=== PATIENT | male | born 1935 | race Caucasian/White ===

== ENCOUNTER 2020-07-30 18:32 | Observation (INO) ==
--- NOTE | 2020-07-30 18:59 | Emergency Department Note ---
History of Present Illness General Chief complaint: Fall Stated complaint: FALL, OFF BALANCE, AMS Time Seen by Provider: 07/30/20 18:39 Source: patient and family History of Present Illness Provider complaint: Frequent falls Onset (ago): day(s) Location: head Severity: moderate Pain Consistency: + intermittent Maximum Pain Intensity: 0 Quality: + other (Loss of balance) Relieved By: + none Associated symptoms: no chest pain, no cough, no fever/chills, no headaches, no nausea/vomiting, no shortness of breath and no syncope This is an 85-year-old male with a history of Parkinson's disease presenting with frequent falls. He states for the past 3 days he has fallen 3 times. He fell a few hours ago when he got up from the table too quickly and lost his balance and fell on the linoleum. He does believe that he hit his head but did not have any loss of consciousness. He had a similar episode yesterday when he got up from the table too quickly and lost his balance again hitting his left forehead on the ground without LOC. He fell 3 days ago when he lost his balance and suffered a laceration of his buttock which was repaired here. His son states that he has not quite been himself for the past month. He has visual veliz llucinations where he sees people in the yard. He is slightly confused at times. He does state that his tetanus is up-to-date. He denies any headache, neck pain, chest pain, shortness of breath, palpitations, abdominal pain, back pain, hip pain, extremity pain, vomiting, diarrhea, black or bloody stools or urinary symptoms. Home Medications Medication Instructions Recorded Confirmed Type carbidopa-levodopa See Rx Instructions .ROUTE .COMPLEX 07/27/20 07/30/20 History Allergies Allergy/AdvReac Type Severity Reaction Status Date / Time No Known Allergies Allergy Verified 07/30/20 20:37 Past Med/Surg History Medical History Parkinsons disease Social History Smoking Status: Former smoker Tobacco Type: Cigarettes Preferred Language: Urdu Feels Safe at Home: Yes Review of Systems See HPI for pertinent positives & negatives. and A total of 10 systems reviewed and were otherwise negative Physical Exam Vital Signs Vital Signs - 24 hr 07/30/20 18:33 07/30/20 21:00 07/30/20 21:30 Temperature 37.1 C Temperature Source Oral Pulse Rate 103 H 90 95 H Respiratory Rate 18 24 21 Blood Pressure 163/92 H 164/92 H Blood Pressure Mean 115 116 Blood Pressure Position Sitting Pulse Oximetry 99 97 Oxygen Delivery Method Room Air Sepsis Recent Fever Within 48 Hours No Sepsis New/Unexplained Change in Mental Status N/A Sepsis Action Taken by Nursing No Action Required Constitutional: Vital signs reviewed. Eyes: Pupils are equal round reactive to light. Conjunctiva are noninjected. ENT: Pharynx is clear without erythema or exudate. Mucous membranes are moist. Bruising to the left superior orbit without bony tenderness or signs of entrapment. Neck supple without meningeal signs. No midline tenderness to the cervical spine. Respiratory: Clear to auscultation bilaterally. Breath sounds are equal bilaterally. Cardiovascular: Irregularly irregular rhythm. Normal rate. GI: Soft, nondistended and nontender. Bowel sounds are present. Musculoskeletal: No peripheral edema. No hip or lower extremity tenderness. Integumentary: No cyanosis. or jaundice. Superficial laceration to the middle forehead. 2 cm in size. Incision to right buttock intact with sutures in place. No drainage or erythema. Neurologic: The patient is awake and alert. Cranial nerves II-XII are intact. Motor is 5 out of 5 all extremities. Sensation is intact to light touch all extremities. Normal speech. No pronator drift. No limb ataxia. Resting tremor. Psychiatric: Normal affect. Not anxious appearing. Medical Decision Making Differential Diagnosis ICH, concussion, skull fracture, cervical fracture, contusion, metabolic derangement, UTI Medical Records Attestation: I reviewed the patient's medical records. I did perform a limited focused review of portions of the patient's old chart on the electronic medical record. The patient was seen here 3 days ago for a laceration to the right buttock sustained after a fall. He was sutured and discharged home. Home Medications Current Medication List: was personally reviewed by me Laboratory Data Attestation: I reviewed the patient's lab results. Result diagrams: 07/30/20 19:00 07/30/20 19:00 Lab Results 07/30/20 07/30/20 07/30/20 Range/Units 19:00 19:00 19:00 WBC 7.64 (4.8-10.8) K/uL RBC 4.43 L (4.7-6.1) M/uL Hgb 12.8 L (14.0-18.0) g/dL Hct 37.6 L (42-52) % MCV 84.9 (80-100) fL MCH 28.9 (25-34) pg MCHC 34.0 (32-36) g/dL RDW Std Deviation 43.3 (36.4-46.3) fL RDW Coeff of Shira 13.8 (11.5-14.5) % Plt Count 354 (130-400) K/uL MPV 9.4 (7.4-10.4) fL Immature Gran % (Auto) 0.1 % Neut % (Auto) 80.9 % Lymph % (Auto) 10.3 % Lea % (Auto) 7.6 % Eos % (Auto) 0.8 % Baso % (Auto) 0.3 % Neut # (Auto) 6.18 (1.4-6.5) K/uL Lymph # (Auto) 0.79 L (1.2-3.4) K/uL Lea # (Auto) 0.58 (0.11-0.59) K/uL Eos # (Auto) 0.06 (0-0.5) K/uL Baso # (Auto) 0.02 (0-0.2) K/uL Immature Gran # (Auto) 0.01 (0.00-0.02) K/uL PT 10.7 (9.0-12.0) Seconds INR 1.0 (0.9-1.1) APTT (21.0-31.0) Seconds PTT Ratio Sodium 136 (136-145) mmol/L Potassium 3.8 (3.5-5.1) mmol/L Chloride 103 (98-107) mmol/L Carbon Dioxide 27 (21-32) mmol/L Anion Gap 6.0 (3-11) BUN 15 (7-18) mg/dl Creatinine 1.49 H (0.6-1.4) mg/dl Est Cr Clr Drug Dosing Not Reportable Est GFR ( Amer) 49.2 Est GFR (Non-Af Amer) 42.5 BUN/Creatinine Ratio 9.9 L (10-20) Glucose 98 (70-99) mg/dl Calcium 9.0 (8.5-10.1) mg/dl Magnesium 2.1 (1.8-2.4) mg/dl Total Bilirubin 0.9 (0.2-1) mg/dl AST 14 L (15-37) U/L ALT 8 L (12-78) U/L Alkaline Phosphatase 90 (45-117) U/L Troponin I < 0.015 (0-0.045) ng/ml Total Protein 7.6 (6.4-8.2) gm/dl Albumin 3.9 (3.4-5.0) gm/dl Globulin 3.7 (2.5-4.0) gm/dl Albumin/Globulin Ratio 1.1 (0.9-2) TSH 3.120 (0.300-4.500) uIu/ml SARS-CoV-2 Ag (Rapid) (Negative) 07/30/20 07/30/20 Range/Units 19:00 21:00 WBC (4.8-10.8) K/uL RBC (4.7-6.1) M/uL Hgb (14.0-18.0) g/dL Hct (42-52) % MCV (80-100) fL MCH (25-34) pg MCHC (32-36) g/dL RDW Std Deviation (36.4-46.3) fL RDW Coeff of Shira (11.5-14.5) % Plt Count (130-400) K/uL MPV (7.4-10.4) fL Immature Gran % (Auto) % Neut % (Auto) % Lymph % (Auto) % Lea % (Auto) % Eos % (Auto) % Baso % (Auto) % Neut # (Auto) (1.4-6.5) K/uL Lymph # (Auto) (1.2-3.4) K/uL Lea # (Auto) (0.11-0.59) K/uL Eos # (Auto) (0-0.5) K/uL Baso # (Auto) (0-0.2) K/uL Immature Gran # (Auto) (0.00-0.02) K/uL PT (9.0-12.0) Seconds INR (0.9-1.1) APTT 25.1 (21.0-31.0) Seconds PTT Ratio 0.9 Sodium (136-145) mmol/L Potassium (3.5-5.1) mmol/L Chloride (98-107) mmol/L Carbon Dioxide (21-32) mmol/L Anion Gap (3-11) BUN (7-18) mg/dl Creatinine (0.6-1.4) mg/dl Est Cr Clr Drug Dosing Est GFR ( Amer) Est GFR (Non-Af Amer) BUN/Creatinine Ratio (10-20) Glucose (70-99) mg/dl Calcium (8.5-10.1) mg/dl Magnesium (1.8-2.4) mg/dl Total Bilirubin (0.2-1) mg/dl AST (15-37) U/L ALT (12-78) U/L Alkaline Phosphatase (45-117) U/L Troponin I (0-0.045) ng/ml Total Protein (6.4-8.2) gm/dl Albumin (3.4-5.0) gm/dl Globulin (2.5-4.0) gm/dl Albumin/Globulin Ratio (0.9-2) TSH (0.300-4.500) uIu/ml SARS-CoV-2 Ag (Rapid) Negative (Negative) Imaging Data Radiologist's Impression: XR chest 1V portable HISTORY: weakness COMPARISON: Chest 11/16/2012. FINDINGS: No pneumothorax. No pleural effusions. The heart is normal in size. No new focal lung consolidations to suggest pneumonia. No evidence for pulmonary edema. Calcifications overlying the right hepatic lobe. This remains unchanged. IMPRESSION: No significant change compared to the prior study. No acute process. ACT 112: Negative or not required by law. Electronically signed by: Derrek Viramontes M.D. 07/30/2020 7:[address]AST CT DOSE: 1411.29 mGy.cm HISTORY: fall eval for bleed TECHNIQUE: Multiaxial CT images of the head were performed without the use of intravenous contrast. Automated exposure control was utilized for this study. A dose lowering technique was utilized adhering to the principles of ALARA. Comparison: Brain MRI 11/12/2012. Findings: The paranasal sinuses and mastoid air cells are clear. The calvarium and skull base are intact. There is no mass, hematoma, midline shift, acute infarct. White matter hypodensity is nonspecific but suggestive of microvascular ischemic change. The ventricles and sulci demonstrate mild age-related involutional changes. Impression: No acute intracranial abnormality. Atrophy and microvascular ischemic changes. ACT 112: Negative or not required by law. Electronically signed by: Derrek Viramontes M.D. 07/30/2020 7:[address] DOSE: HISTORY: fall eval for fx TECHNIQUE: Multiaxial CT images of the cervical spine were performed and reformatted in the sagittal and coronal plane without the use of contrast. A dose lowering technique was utilized adhering to the principles of ALARA. COMPARISON: None. FINDINGS: No fractures. Prevertebral soft tissues and the C1-C2 interval are intact. No pneumothorax. Dextroscoliosis. 3 mm of anterolisthesis of C3 on C4. This is likely chronic. Mild reversal of the normal lordotic curvature. 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 The C5-C6 vertebral bodies are partially fused. IMPRESSION: No fractures within the cervical spine. ACT 112: Negative or not required by law. Electronically signed by: Derrek Viramontes M.D. 07/30/2020 7:48 PM ECG Data Attestation: I personally reviewed and interpreted this ECG as follows: Indication: + other (Frequent falls) Rate (beats per minute): 96 Rhythm: + atrial fibrillation ECG ST segments: no ST elevation and no T-wave inversions ECG Findings: no PVCs Head Trauma GCS Score: 15 MDM Narrative I did evaluate the patient as noted above. The patient is presenting with prabhu quent falls. He has fallen every day for the past 3 days. He does have a head injury and some minor abrasions and superficial laceration. He states his tetanus is up-to-date. IV access was established. I did place an order for continuous cardiac monitoring. The monitor showed atrial fibrillation with a rate of 100 bpm. I did order and personally review the patient's 12-lead EKG as described above. He has atrial fibrillation without acute ischemia. He has never had atrial fibrillation in the past. I did order and personally reviewed the images of the patient's chest x-ray as described above. Chest x-ray is unremarkable. I did order and review the patient's blood work as noted in the electronic medical record. He is mildly anemic. His white blood cell count is not elevated. Electrolytes are unremarkable. Troponin is negative. Creatinine is elevated at 1.5. TSH is within normal limits. I did order a CT of the abdomen and pelvis. I did review the images myself as well as the radiology report as described above. I did discuss the test results with the patient and his son. I did recommend hospitalization for further care and evaluation. I did discuss case with the hospitalist and case reviewer. Impression & Plan Atrial fibrillation, new onset, Parkinsons disease, Acute head injury, Frequent falls, Hallucination, visual, Elevated serum creatinine Discharge Plan Visit Data Chief Complaint: Fall Stated Complaint: FALL, OFF BALANCE, AMS ED Provider: Peewee Pack Discharge Problem: Atrial fibrillation, new onset, Parkinsons disease, Acute head injury, Frequent falls, Hallucination, visual, Elevated serum creatinine Patient Disposition: Being Evaluated by Hospitalist Discharge Instructions Interventions: ED Discharge Assessment Last Done: 07/30/20 22:19 Forms Stand Alone Forms: [facility] Prescriptions Prescriptions: No Action carbidopa-levodopa 25-100 mg tablet extended release See Rx Instructions .ROUTE .COMPLEX RF: 0 Referrals Referrals: PCP,NO [Primary Care Provider] - Discharge Problem: Acute head injury Qualifiers: Encounter type: initial encounter Qualified Code(s): S09.90XA - Unspecified injury of head, initial encounter
[2020-07-30 19:18] LABS: Basophils # (auto) 0.02 K/uL (0-0.2); Basophils % (auto) 0.3 %; Eosinophils # (auto) 0.06 K/uL (0-0.5); Eosinophils % (auto) 0.8 %; Hematocrit (blood only) 37.6 % (42-52); Hemoglobin 12.8 g/dL (14.0-18.0); Immature Granulocytes # (auto) 0.01 K/uL (0.00-0.02); Immature Granulocytes % (auto) 0.1 %; Lymphocytes # (auto) 0.79 K/uL (1.2-3.4); Lymphocytes % (auto) 10.3 %; Mean Corpuscular Hemoglobin 28.9 pg (25-34); Mean Corpuscular Volume 84.9 fL (80-100); Mean Platelet Volume 9.4 fL (7.4-10.4); Monocytes # (auto) 0.58 K/uL (0.11-0.59); Monocytes % (auto) 7.6 %; Neutrophils # (auto) 6.18 K/uL (1.4-6.5); Neutrophils % (auto) 80.9 %; Platelet Count 354 K/uL (130-400); RDW Coefficient of Variation 13.8 % (11.5-14.5); RDW Standard Deviation 43.3 fL (36.4-46.3); Red Blood Count 4.43 M/uL (4.7-6.1); White Blood Count 7.64 K/uL (4.8-10.8)
[2020-07-30 19:26] LABS: Prothrombin Time 10.7 Seconds (9.0-12.0)
--- NOTE | 2020-07-30 19:39 | XRay Report ---
XR chest 1V portable HISTORY: weakness COMPARISON: Chest 11/16/2012. FINDINGS: No pneumothorax. No pleural effusions. The heart is normal in size. No new focal lung conso lidations to suggest pneumonia. No evidence for pulmonary edema. Calcifications overlying the right h epatic lobe. This remains unchanged. IMPRESSION: No significant change compared to the prior study. No acute process. ACT 112: Negative or not required by law. Electronically signed by: Derrek Viramontes M.D. 07/30/2020 7:38 PM
--- NOTE | 2020-07-30 19:45 | CT Scan Report ---
HEAD CT NONCONTRAST CT DOSE: 1411.29 mGy.cm HISTORY: fall eval for bleed TECHNIQUE: Multiaxial CT images of the head were performed without the use of intravenous contrast. A utomated exposure control was utilized for this study. A dose lowering technique was utilized adheri ng to the principles of ALARA. Comparison: Brain MRI 11/12/2012. Findings: The paranasal sinuses and mastoid air cells are clear. The calvarium and skull base are int act. There is no mass, hematoma, midline shift, acute infarct. White matter hypodensity is nonspecifi c but suggestive of microvascular ischemic change. The ventricles and sulci demonstrate mild age-rela berenice involutional changes. Impression: No acute intracranial abnormality. Atrophy and microvascular ischemic changes. ACT 112: Negative or not required by law. Electronically signed by: Derrek Viramontes M.D. 07/30/2020 7:44 PM
--- NOTE | 2020-07-30 19:49 | CT Scan Report ---
CERVICAL SPINE CT CT DOSE: HISTORY: fall eval for fx TECHNIQUE: Multiaxial CT images of the cervical spine were performed and reformatted in the sagittal and coronal plane without the use of contrast. A dose lowering technique was utilized adhering to e principles of ALARA. COMPARISON: None. FINDINGS: No fractures. Prevertebral soft tissues and the C1-C2 interval are intact. No pneumothorax. Dextroscoliosis. 3 mm of anterolisthesis of C3 on C4. This is likely chronic. Mild reversal of the n ormal lordotic curvature. Moderate degenerative disc disease and facet osteoarthritis within the maryse rity of the cervical spine. The C5-C6 vertebral bodies are partially fused. IMPRESSION: No fractures within the cervical spine. ACT 112: Negative or not required by law. Electronically signed by: Derrek Viramontes M.D. 07/30/2020 7:48 PM
[2020-07-30 20:01] LABS: Alanine Aminotransferase 8 U/L (12-78); Albumin Globulin Ratio 1.1 (0.9-2); Albumin Level 3.9 gm/dl (3.4-5.0); Alkaline Phosphatase 90 U/L (45-117); Aspartate Aminotransferase 14 U/L (15-37); BUN Creatinine Ratio 9.9 (10-20); Bilirubin,Total 0.9 mg/dl (0.2-1); Blood Urea Nitrogen 15 mg/dl (7-18); Carbon Dioxide 27 mmol/L (21-32); Chloride 103 mmol/L (98-107); Est GFR (African American) 49.2; Est GFR (Non-African American) 42.5; Globulin 3.7 gm/dl (2.5-4.0); Glucose 98 mg/dl (70-99); Magnesium 2.1 mg/dl (1.8-2.4); Potassium 3.8 mmol/L (3.5-5.1); Sodium 136 mmol/L (136-145); Total Protein 7.6 gm/dl (6.4-8.2); Troponin I < 0.015 ng/ml (0-0.045)
[2020-07-30 20:53] LABS: Partial Thromboplastin Ratio 0.9; Partial Thromboplastin Time 25.1 Seconds (21.0-31.0)
--- NOTE | 2020-07-30 21:53 | History & Physical Report ---
Date of Service July 30, 2020 Assessment & Plan (1) Frequent falls: 85yo male with history of PD presenting with frequent falls, gait instability. Dominic has not been taking his PD medications for the last week because he reports they make him sleepy. Suspect falls and hallucinations are secondary to progression of PD, medication non-adherance -Admit to medical with telemetry -Check orthostatic VS x 1 -Resume Carbidopa-Levodopa -Neurology consultation appreciated re: medication adjustments, alternative therapies. Patient will need to followup with Neurology outpatient -Fall precautions -PT/OT evaluation - patient does not wish to be placed in rehab if it can be avoided Present on Admission?: Yes (2) Parkinsons disease: As above -Continue Carbidopa-Levodopa Present on Admission?: Yes (3) Hallucination, visual: Possibly secondary to PD progression vs medication-nonadherence -Resume carbidopa/levodopa as above -Continue to monitor Present on Admission?: Yes (4) Atrial fibrillation, new onset: EKG suggestive of atrial fibrillation. Patient had mention of arrhythmia during an ER visit in 2012, suggestive of AF. His first EKG seems more like SR with PACs, on exam his pulse is regular with ectopy. He is rate controlled. Would not initiate anticoagulation at this time given history of frequent falls with head trauma. -Telemetry monitoring F/E/N - LR at 100mL/hr x 1 liter, encourage PO intake, electrolytes WNL, regular diet as tolerated - easy to chew Ppx - SCDs Code - DNR/DNI Dispo - Admit to medical with telemetry History of Present Illness Chief Complaint: frequent falls Primary Care Provider: NO PCP Giacomo Cloud is a pleasant 85yo C male with history of Parkinson's disease presenting with frequent falls. Patient resides at home with his son and is fairly active and independent at baseline. He has had progressive decline in function and mobility over the last few weeks. He has been needing a walker to ambulate x 1 week. Patient has fallen multiple times over the last three days. He has had head trauma as well as buttock trauma requiring suturing on 07/27/20. Patient states that he "gets in a hurry" sometimes and that he loses his balance. Sometimes he thinks he may be tripping over things in his home. He denies chest pain/palpitations/LOC/seizures. He reports increase in visual hallucinations - states that sometimes he thinks he sees his son sitting in the chair in his room or the neighbor girl sitting at his kitchen table. Patient has longstanding diagnosis of Parkinson's disease. He does not follow routinely with Neurology - last seen in 2012. He is currently on Carbidopa- Levodopa but states that he hasn't been taking them over the last week or so because they make him too tired. No additional complaints at this time. No known Covid-19 exposure. Rapid testing today NEGATIVE Allergies Allergy/AdvReac Type Severity Reaction Status Date / Time No Known Allergies Allergy Verified 07/30/20 20:37 Home Medications Medication Instructions Recorded Confirmed Type carbidopa-levodopa See Rx Instructions .ROUTE .COMPLEX 07/27/20 07/30/20 History Past Med/Surg History Medical History (Updated 07/30/20 @ 20:27 by Peewee Pack MD) Parkinsons disease Surgical History (Updated 07/31/20 @ 00:38 by Haydee Guzman DO) No significant past surgical history Family History (Updated 07/31/20 @ 00:38 by Haydee Guzman DO) Other No significant family history Social History Smoking Status: Former smoker Tobacco Type: Cigarettes Do You Dip or Chew Tobacco: No; Hx Alcohol Use: No Hx Substance Use: No Preferred Language: Solomon Islander Communication Ability: Effective Route Sales Representative Required: No Beliefs That Will Affect Care: None Current Living Situation: Family Current Living Situation Comment: lives with son Evangelist Other Information That Helps Us Care for You: No Feels Safe at Home: Yes Safety Concerns: Feels Safe At This Time Assistive Devices: Glasses and Walker Review of Systems Review of Systems: All systems reviewed & are unremarkable except as noted in HPI & below Physical Exam Physical Exam: General: patient resting comfortably, NAD, non-toxic in appearance, AA&O x 3 Skin: scattered ecchymoses on forearms, abrasion on left elbow, several skin tears on arms, small cuts and bruises on face, no active bleeding or evidence of secondary infection HEENT: PERRL, EOMI, anicteric sclera, conjunctiva without injection, external ear normal to inspection and nontender, nares patent, moist mucus membranes, dentition intact, no oropharyngeal lesions, neck supple, trachea midline, no LAD, no thyromegaly, no JVD Heart: +S1/S2, regular with ectopy, no m/r/g Lungs: equal air entry bilaterally, no rales/rhonchi/wheezes Abd: +BS, soft, NT/ND, no masses/organomegaly/ascites Ext: warm, 2+ pulses in UE/LE bilaterally, no clubbing/cyanosis or edema Neuro: AA&O x 3, speech clear, resting tremor noted in hands and mouth, sensation to light touch intact, strength intact 5/5, patient right hand dominant, no cogwheel rigidity, poor balance with ambulation Results & Data Results & Data ([facility]) Vital Signs (Past 12 Hours) Vital Signs Temp Pulse Resp BP Pulse Ox 07/30/20 21:30 95 H 21 07/30/20 21:00 90 24 164/92 H 97 07/30/20 18:33 37.1 C 103 H 18 163/92 H 99 Laboratory Results Lab Results 07/30/20 07/30/20 07/30/20 Range/Units 19:00 19:00 19:00 WBC 7.64 (4.8-10.8) K/uL RBC 4.43 L (4.7-6.1) M/uL Hgb 12.8 L (14.0-18.0) g/dL Hct 37.6 L (42-52) % MCV 84.9 (80-100) fL MCH 28.9 (25-34) pg MCHC 34.0 (32-36) g/dL RDW Std Deviation 43.3 (36.4-46.3) fL RDW Coeff of Shira 13.8 (11.5-14.5) % Plt Count 354 (130-400) K/uL MPV 9.4 (7.4-10.4) fL Immature Gran % (Auto) 0.1 % Neut % (Auto) 80.9 % Lymph % (Auto) 10.3 % [place] % (Auto) 7.6 % Eos % (Auto) 0.8 % Baso % (Auto) 0.3 % Neut # (Auto) 6.18 (1.4-6.5) K/uL Lymph # (Auto) 0.79 L (1.2-3.4) K/uL [place] # (Auto) 0.58 (0.11-0.59) K/uL Eos # (Auto) 0.06 (0-0.5) K/uL Baso # (Auto) 0.02 (0-0.2) K/uL Immature Gran # (Auto) 0.01 (0.00-0.02) K/uL PT 10.7 (9.0-12.0) Seconds INR 1.0 (0.9-1.1) APTT (21.0-31.0) Seconds PTT Ratio Sodium 136 (136-145) mmol/L Potassium 3.8 (3.5-5.1) mmol/L Chloride 103 (98-107) mmol/L Carbon Dioxide 27 (21-32) mmol/L Anion Gap 6.0 (3-11) BUN 15 (7-18) mg/dl Creatinine 1.49 H (0.6-1.4) mg/dl Est Cr Clr Drug Dosing Not Reportable Est GFR ( Amer) 49.2 Est GFR (Non-Af Amer) 42.5 BUN/Creatinine Ratio 9.9 L (10-20) Glucose 98 (70-99) mg/dl Calcium 9.0 (8.5-10.1) mg/dl Magnesium 2.1 (1.8-2.4) mg/dl Total Bilirubin 0.9 (0.2-1) mg/dl AST 14 L (15-37) U/L ALT 8 L (12-78) U/L Alkaline Phosphatase 90 (45-117) U/L Troponin I < 0.015 (0-0.045) ng/ml Total Protein 7.6 (6.4-8.2) gm/dl Albumin 3.9 (3.4-5.0) gm/dl Globulin 3.7 (2.5-4.0) gm/dl Albumin/Globulin Ratio 1.1 (0.9-2) TSH 3.120 (0.300-4.500) uIu/ml SARS-CoV-2 Ag (Rapid) (Negative) 07/30/20 07/30/20 Range/Units 19:00 21:00 WBC (4.8-10.8) K/uL RBC (4.7-6.1) M/uL Hgb (14.0-18.0) g/dL Hct (42-52) % MCV (80-100) fL MCH (25-34) pg MCHC (32-36) g/dL RDW Std Deviation (36.4-46.3) fL RDW Coeff of Shira (11.5-14.5) % Plt Count (130-400) K/uL MPV (7.4-10.4) fL Immature Gran % (Auto) % Neut % (Auto) % Lymph % (Auto) % [place] % (Auto) % Eos % (Auto) % Baso % (Auto) % Neut # (Auto) (1.4-6.5) K/uL Lymph # (Auto) (1.2-3.4) K/uL [place] # (Auto) (0.11-0.59) K/uL Eos # (Auto) (0-0.5) K/uL Baso # (Auto) (0-0.2) K/uL Immature Gran # (Auto) (0.00-0.02) K/uL PT (9.0-12.0) Seconds INR (0.9-1.1) APTT 25.1 (21.0-31.0) Seconds PTT Ratio 0.9 Sodium (136-145) mmol/L Potassium (3.5-5.1) mmol/L Chloride (98-107) mmol/L Carbon Dioxide (21-32) mmol/L Anion Gap (3-11) BUN (7-18) mg/dl Creatinine (0.6-1.4) mg/dl Est Cr Clr Drug Dosing Est GFR ( Amer) Est GFR (Non-Af Amer) BUN/Creatinine Ratio (10-20) Glucose (70-99) mg/dl Calcium (8.5-10.1) mg/dl Magnesium (1.8-2.4) mg/dl Total Bilirubin (0.2-1) mg/dl AST (15-37) U/L ALT (12-78) U/L Alkaline Phosphatase (45-117) U/L Troponin I (0-0.045) ng/ml Total Protein (6.4-8.2) gm/dl Albumin (3.4-5.0) gm/dl Globulin (2.5-4.0) gm/dl Albumin/Globulin Ratio (0.9-2) TSH (0.300-4.500) uIu/ml SARS-CoV-2 Ag (Rapid) Negative (Negative) Diagnostic Findings XR chest 1V portable HISTORY: weakness COMPARISON: Chest 11/16/2012. FINDINGS: No pneumothorax. No pleural effusions. The heart is normal in size. No new focal lung consolidations to suggest pneumonia. No evidence for pulmonary edema. Calcifications overlying the right hepatic lobe. This remains unchanged. IMPRESSION: No significant change compared to the prior study. No acute process. ACT 112: Negative or not required by law. Electronically signed by: Derrek Viramontes M.D. 07/30/2020 7:38 PM Dictated: 07/30/201936Transcribed: 07/30/[address] NONCONTRAST CT DOSE: 1411.29 mGy.cm HISTORY: fall eval for bleed TECHNIQUE: Multiaxial CT images of the head were performed without the use of intravenous contrast. Automated exposure control was utilized for this study. A dose lowering technique was utilized adhering to the principles of ALARA. Comparison: Brain MRI 11/12/2012. Findings: The paranasal sinuses and mastoid air cells are clear. The calvarium and skull base are intact. There is no mass, hematoma, midline shift, acute infarct. White matter hypodensity is nonspecific but suggestive of microvascular ischemic change. The ventricles and sulci demonstrate mild age-related involutional changes. Impression: No acute intracranial abnormality. Atrophy and microvascular ischemic changes. ACT 112: Negative or not required by law. [facility], [id number] CT Scan Report Patient: GIACOMO CLOUDAdmit Date: 07/30/20MR#: [id number]: [id number] ID:[id number]: Date: 1935[facility] Zip: [place], [place] [address]Jhj: 85Location: EDSex: MRoom/Bed:Att Phy:Diagnosis: FALL, OFF BALANCE, AMSPri Phy: PCP,NOService Date: 07/30/20Fam Phy:Interpreting Phy: Derrek Viramontes MDAdmit Phy: Ordering Phy: Peewee Pack MD cc: ~ CERVICAL SPINE CT CT DOSE: HISTORY: fall eval for fx TECHNIQUE: Multiaxial CT images of the cervical spine were performed and reformatted in the sagittal and coronal plane without the use of contrast. A dose lowering technique was utilized adhering to the principles of ALARA. COMPARISON: None. FINDINGS: No fractures. Prevertebral soft tissues and the C1-C2 interval are intact. No pneumothorax. Dextroscoliosis. 3 mm of anterolisthesis of C3 on C4. This is likely chronic. Mild reversal of the normal lordotic curvature. 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 The C5-C6 vertebral bodies are partially fused. IMPRESSION: No fractures within the cervical spine. ACT 112: Negative or not required by law. Electronically signed by: Derrek Viramontes M.D. 07/30/2020 7:48 PM Dictated: 07/30/201943Transcribed: 07/30/201943 ECG Additional Comments: atrial fibrillation, 96 bpm, no acute ischemic changes PG Care Time/CCT Total # of Minutes Spent Total Time Spent with Patient: Total time spent is greater than 50% in coordination of care (as documented) at patient's floor/unit and/or counseling patient: Coding Level of Care Code 36403 Initial Inpt Care Lvl 3 Diagnoses Frequent falls R29.6 Parkinsons disease G20 Hallucination, visual R44.1 Atrial fibrillation, new onset I48.91
[2020-07-30] MEDS ORDERED: LACTATED RINGER'S 1,000 ML IV SCH (22:56)
[2020-07-30] MEDS ORDERED: ACETAMINOPHEN 325 MG TAB PO PRN (22:56)
[2020-07-31 05:26] LABS: Appearance Urine Cloudy (Clear); Bacteria Urine Automated Negative (Negative); Bilirubin Urine Negative (Negative); Blood Urine 3+ (Negative); Color Urine Dark Yellow; Epithelial Cell Urine Auto >30 /lpf (0-5); Glucose Urine UA Negative (Negative); Ketones Urine Negative (Negative); Leukocyte Esterase Urine 1+ (Negative); Nitrite Urine Negative (Negative); Protein Urine 2+ (Negative); RBC Urine Automated >30 /hpf (0-4); Specific Gravity Urine 1.022 (1.000-1.030); Urobilinogen Urine Positive (Negative); WBC Urine Automated >30 /hpf (0-5); pH Urine 6.5 (4.5-7.5)
[2020-07-31] MEDS: CARBIDOPA/LEVODOPA 25/100MG EXT REL TAB PO SCH ×4 (05:31→17:44)
[2020-07-31 05:51] LABS: Renal Epithelial Cells Urine 0-5 /lpf (0-5)
[2020-07-31 07:28] LABS: Basophils # (auto) 0.02 K/uL (0-0.2); Basophils % (auto) 0.4 %; Eosinophils # (auto) 0.09 K/uL (0-0.5); Eosinophils % (auto) 1.7 %; Hematocrit (blood only) 33.9 % (42-52); Hemoglobin 11.4 g/dL (14.0-18.0); Lymphocytes # (auto) 0.87 K/uL (1.2-3.4); Lymphocytes % (auto) 16.6 %; Mean Corpuscular Hemoglobin 28.8 pg (25-34); Mean Corpuscular Hgb Conc 33.6 g/dL (32-36); Mean Corpuscular Volume 85.6 fL (80-100); Mean Platelet Volume 9.3 fL (7.4-10.4); Monocytes # (auto) 0.46 K/uL (0.11-0.59); Monocytes % (auto) 8.8 %; Neutrophils # (auto) 3.79 K/uL (1.4-6.5); Neutrophils % (auto) 72.5 %; Platelet Count 303 K/uL (130-400); RDW Coefficient of Variation 13.8 % (11.5-14.5); RDW Standard Deviation 43.4 fL (36.4-46.3); Red Blood Count 3.96 M/uL (4.7-6.1); White Blood Count 5.23 K/uL (4.8-10.8)
--- NOTE | 2020-07-31 07:36 | Hospitalist Progress Note ---
Date of Service July 31, 2020 Assessment & Plan (1) Parkinsons disease: Patient is an 85 year old male with PMHx Parkinson's Disease that presented initially for concerns of multiple falls, worsening weakness x1 month, visual hallucinations x1 month. Frequent Falls and Visual Hallucinations, secondary to Parkinson's Disease -Patient had increased falls x1 week since stopping home Sinemet -Orthostatics completed, within normal limits -Neurology consulted for medication adjustment -Reduce carbidopa-levodopa 25/100mg ER to 1 tab QID (6a/10a/2p/6p) to avoid side effect -Can consider pimavanserin 34mg daily outpatient for hallucinations -PT/OT ordered -PT/OT/Neuro recommending patient be referred for PD program at [facility] for inpatient rehab services Atrial Fibrillation, new onset -Mention of arrhythmia on ED visit in 2012 suggestive of atrial fibrillation -Rate well controlled without antiarrhythmics at this time -Echo with EF 65-70%, no valvular pathology, no regional wall abnormalities -Patient [id number] 3 with 3.2% stroke risk yearly -While not an entire contraindication, patients significant fall history and risk should be weighed in regards to anticoagulation -Would consider DOAC (would prefer Eliquis, insurance coverage allowing) if starting anticoagulation, will hold at this time until further discussion with patient and sons Dispo: M/S Telemetry FEN: Regular ETC diet DVT: SCDs, high fall risk Code: DNR/DNI (2) Frequent falls: (3) Atrial fibrillation, new onset: (4) Hallucination, visual: Admission and Anticipated Discharge Date Admission Date: July 30, 2020 Supervising Physician Co-Signing Physician Notes Resident Physician Supervision Note: I independently interviewed and examined the patient and verified the richmond history and physical, reviewed labs and image studies, discussed the case with the resident Dr. Cavanaugh and agree with the findings and care plan. Subjective Patient evaluated at the bedside this AM with the hospitalist team. Patient laying comfortably in bed in no acute distress. Noted that he had been feeling weaker for the past month, but acutely worsened the past week. Hope that his medication was making him weaker and dizzier as as a result stopped taking his Sinemet 1 week ago. He also notes he had been having visual hallucinations which upon discussion with his sons has been ongoing for the past 1-2 weeks as well. He notes that he adamantly would prefer to go back home rather than rehab. Discussed with his son who is CHON who felt that his father would likely benefit more from rehab at this time and that he would discuss it with his father more. Review of Systems Constitutional: + weakness; no fever and no chills Eyes: no eye pain and no photophobia Ear, Nose, Mouth, Throat: + dizziness Respiratory: no cough, no dyspnea and no pain on inspiration Cardiovascular: no chest pain, no dyspnea on exertion and no palpitations Gastrointestinal: no abdominal pain, no nausea, no vomiting, no constipation and no diarrhea/loose stools Genitourinary: no dysuria Musculoskeletal: + stiffness and + muscle weakness Neurologic: + gait abnormality, + unsteadiness, + generalized weakness, + tremor(s) and + confusion; no headache(s) Physical Exam Constitutional: + thin and cooperative; no acute distress and not ill ap pearing Eyes: PERRL, conjunctivae normal, anicteric sclerae ENMT: external ear and nose normal, oropharynx normal Neck: normal visual inspection Respiratory: normal respiratory effort, lungs clear to auscultation Cardiovascular: Rate/Rhythm: + irregularly irregular Heart Sounds: normal S1 and normal S2; no murmur Extremities: normal capillary refill Gastrointestinal (Abdomen): normal bowel sounds, soft, nontender, no hepatosplenomegaly Musculoskeletal: no cyanosis or clubbing, extremities motor strength 5/5 Head/Neck/Chest: normocephalic Skin: no rashes, warm and dry Neurologic: PERRL, EOMI, accommodation nl, no face palsy, no dysarthria awake; not confused and not obtunded Motor/Sensory: + tremor; no pronator drift Gait deferred Results & Data Results & Data ([facility]) Vital Signs (Past 12 Hours) Vital Signs Temp Pulse Pulse Resp BP BP BP 07/31/20 07:32 85 07/31/20 02:45 36.4 C L 88 17 152/69 H 07/31/20 01:06 95 H 07/31/20 00:04 70 158/89 H 07/30/20 22:57 37.0 C 72 12 167/98 H 07/30/20 21:30 95 H 21 07/30/20 21:00 90 24 164/92 H Pulse Ox 07/31/20 07:32 07/31/20 02:45 94 07/31/20 01:06 07/31/20 00:04 07/30/20 22:57 95 07/30/20 21:30 07/30/20 21:00 97 Resident Activity Tracking Resident Involvement: Resident Care Provided Care Provided: Adult Hospital Medicine
[2020-07-31 08:07] LABS: BUN Creatinine Ratio 10.8 (10-20); Calcium 8.7 mg/dl (8.5-10.1); Creatinine Clr Calc Pharmacy 40.4 ml/min; Est GFR (African American) 63.3; Est GFR (Non-African American) 54.6
--- NOTE | 2020-07-31 09:56 | Electrocardiogram Report ---
Test Reason : Blood Pressure : / mmHG Vent. Rate : 096 BPM Atrial Rate : 166 BPM P-R Int : 000 ms QRS Dur : 084 ms QT Int : 302 ms P-R-T Axes : 000 -09 008 degrees QTc Int : 381 ms Poor data quality, interpretation may be adversely affected Atrial fibrillation Abnormal ECG When compared with ECG of 16-NOV-2012 21:33, Atrial fibrillation has replaced Sinus rhythm Confirmed by Osiel Buck ([id number]) on 07/31/2020 9:55:30 AM Referred By: REFERRED SELF Confirmed By:Osiel Buck
--- NOTE | 2020-07-31 09:58 | Electrocardiogram Report ---
Test Reason : Blood Pressure : / mmHG Vent. Rate : 097 BPM Atrial Rate : 097 BPM P-R Int : 000 ms QRS Dur : 080 ms QT Int : 346 ms P-R-T Axes : 000 -17 -16 degrees QTc Int : 439 ms Poor data quality, interpretation may be adversely affected Atrial fibrillation Nonspecific ST and T wave abnormality Abnormal ECG When compared with ECG of 30-JUL-2020 19:13, (unconfirmed) QT has lengthened Confirmed by Osiel Buck ([id number]) on 07/31/2020 9:58:05 AM Referred By: REFERRED SELF Confirmed By:Osiel Buck
--- NOTE | 2020-07-31 12:06 | Neurology Consultation ---
Date of Consultation July 31, 2020 Assessment & Plan (1) Atrial fibrillation, new onset: (2) Hallucination, visual: (3) Parkinsons disease: Amol Obrien is an 85 yo man w/ PMH of Parkinson's disease and prior tobacco abuse who p/t [facility] after recurrent falls, AMS and visual hallucinations for the last one month. Neurology consulted for medication management. # Parkinson's disease: - decrease carbidopa-levodopa 25/100mg ER to 1 tab qid (6a/10a/2p/6p) - can consider starting pimavanserin 34mg daily for visual hallucinations (this will need to be done as an outpatient) - recommend discharge to the PD program at [facility] for inpatient rehab services tailored to PD. If he will not agree to this, an alternative option would be home with home health PT/OT - conservative measures for orthostatic hypotension including abdominal binder, compression stockings, increasing water intake to 80 oz daily and mild salt intake with each meal - KHALIF for prior neurology records - follow up in neurology clinic in 2-3 months # Afib: - recommend starting AC given CHADSVasc score of 3. Would obtain TTE prior to determine if valvular vs non-valvular Afib Thank you for this interesting consult. Plan of care discussed with primary team. Please call or text with questions. (4) Elevated serum creatinine: History of Present Illness Attending Physician: Tamanna Florez MD History of Present Illness Amol Obrien is an 85 yo man w/ PMH of Parkinson's disease and prior tobacco abuse who p/t [facility] after recurrent falls, AMS and visual hallucinations for the last one month. Neurology consulted for medication management. In the ED, he was afebrile, BP 163/92, HR 103, RR 18, satting 99% on room air. Labs notable for WBC 7.64, hemoglobin 12.9, platelets 354, sodium 136, potassium 3.8, creatinine 1.49, glucose 98, INR 1.0, calcium/magnesium within normal, LFTs within normal, troponin negative, TSH within normal, Covid negative. UA positive for 2+ protein, 3+ blood, positive leukoesterase but no clear infection. Urine culture pending. Imaging independently reviewed. CT head shows mild to moderate generalized atrophy with frontotemporal predominance and associated ex vacuo dilation, +mild SVID. CT C-spine shows moderate multilevel degenerative disc disease with dextroscoliosis and 3 mm of anterolisthesis at C3/C4. Chest x-ray shows no pneumonia. EKG shows A. fib. On evaluation, he was unable to provide further history other than he has Parkinson's disease and has been falling recently. He reported that he wanted to go home and was not interested in rehab. Reports that he has not seen a neurologist in several years Current PD meds: carbidopa-levodopa 25/100mg 1.5 tabs at 6am/10a/2p and 1 tab at 6pm Previously tried PD meds: unknown but must have tried sinemet IR in the past to get approved for the ER form Allergies Allergy/AdvReac Type Severity Reaction Status Date / Time No Known Allergies Allergy Verified 07/30/20 20:37 Home Medications Medication Instructions Recorded Confirmed Type carbidopa-levodopa See Rx Instructions .ROUTE .COMPLEX 07/27/20 07/30/20 History Patient History Medical History Parkinsons disease Surgical History No significant past surgical history Family History Other No significant family history Social History Smoking Status: Former smoker Tobacco Type: Cigarettes Do You Dip or Chew Tobacco: No; Hx Alcohol Use: No Hx Substance Use: No Preferred Language: Vietnamese Communication Ability: Effective Instructor Hairspring Required: No Beliefs That Will Affect Care: None Current Living Situation: Family Current Living Situation Comment: lives with son Evangelist Other Information That Helps Us Care for You: No Feels Safe at Home: Yes Safety Concerns: Feels Safe At This Time Assistive Devices: Walker Review of Systems Review of Systems: 14 point review of systems completed and negative except as in HPI. Exam (Neuro) Physical Exam: General Exam: GEN: NAD, sitting in chair. HEENT: No conjunctival injection, no rhinorrhea. CV: RRR, no peripheral edema PULM: Nonlabored respirations on room air. Neuro Exam: MS: Awake and Alert. Oriented to person, place, and month/year but not date. Speech fluent and appropriate, +mild dysarthria, no paraphasic errors. Language intact including naming, comprehension, repetition. Cognition and memory mildly impaired. Slightly inattentive. No neglect. CN: Visual yoon full. No extinction to double simultaneous stimuli. Unable to visualize fundi on fundoscopic exam. PERRLA OU. EOMI without nystagmus. Facial sensation intact to LT. Slight left facial droop. Hearing intact to conversation. Uvula midline with symmetric palatal elevation. Shoulder shrug normal. Tongue midline. MOTOR: Normal bulk and tone, no clear cogwheeling. No pronator drift. BUE strength 5-/5 at deltoids, biceps, triceps, wrist flexors and extensors, and hand grasp bilaterally. BLE strength 4+ to 5-/5 at iliopsoas, hamstrings, quadriceps, tibialis anterior, and gastrocnemius bilaterally. REFLEXES: 1+ at biceps, triceps, brachioradialis, absent patella and absent Achilles bilaterally. Flexor plantar responses bilaterally. SENSORY: Intact to LT/vibration without extinction to double simultaneous stimuli. COORDINATION: No dysmetria or ataxia on [id number] bilaterally. Normal finger taps bilaterally. GAIT: deferred given fall risk/physical status Results & Data ([facility]) Vital Signs (Past 12 Hours) Vital Signs Temp Pulse Pulse Resp BP BP Pulse Ox 07/31/20 11:29 37.1 C 90 18 115/67 96 07/31/20 07:40 37.0 C 83 16 149/78 H 97 07/31/20 07:32 85 07/31/20 02:45 36.4 C L 88 17 152/69 H 94 07/31/20 01:06 95 H 07/31/20 00:04 70 158/89 H PG Care Time/CCT Total # of Minutes Spent Total Time Spent with Patient: Total time spent is greater than 50% in coordination of care (as documented) at patient's floor/unit and/or counseling patient: Coding Level of Care Code 02236 Initial Inpt Care Lvl 3 Diagnoses Atrial fibrillation, new onset I48.91 Hallucination, visual R44.1 Parkinsons disease G20 Elevated serum creatinine R79.89
--- NOTE | 2020-07-31 15:37 | XCELERA ---
[id number]
[2020-07-31] MEDS ORDERED: CARBIDOPA/LEVODOPA 25/100MG EXT REL TAB PO SCH (18:00)
[2020-08-01] MEDS: CARBIDOPA/LEVODOPA 25/100MG EXT REL TAB PO SCH ×4 (05:42→17:28)
[2020-08-01 07:52] LABS: Basophils # (auto) 0.01 K/uL (0-0.2); Basophils % (auto) 0.2 %; Eosinophils # (auto) 0.11 K/uL (0-0.5); Hematocrit (blood only) 36.3 % (42-52); Hemoglobin 12.2 g/dL (14.0-18.0); Immature Granulocytes # (auto) 0.01 K/uL (0.00-0.02); Immature Granulocytes % (auto) 0.2 %; Lymphocytes # (auto) 0.82 K/uL (1.2-3.4); Lymphocytes % (auto) 14.7 %; Mean Corpuscular Hemoglobin 28.4 pg (25-34); Mean Corpuscular Hgb Conc 33.6 g/dL (32-36); Mean Corpuscular Volume 84.4 fL (80-100); Mean Platelet Volume 9.1 fL (7.4-10.4); Monocytes # (auto) 0.38 K/uL (0.11-0.59); Monocytes % (auto) 6.8 %; Neutrophils # (auto) 4.25 K/uL (1.4-6.5); Neutrophils % (auto) 76.1 %; Platelet Count 307 K/uL (130-400); RDW Coefficient of Variation 13.5 % (11.5-14.5); RDW Standard Deviation 41.2 fL (36.4-46.3); White Blood Count 5.58 K/uL (4.8-10.8)
[2020-08-01 08:31] LABS: BUN Creatinine Ratio 12.8 (10-20); Calcium 8.9 mg/dl (8.5-10.1); Creatinine Clr Calc Pharmacy 40.6 ml/min; Est GFR (African American) 65.3; Est GFR (Non-African American) 56.3; Potassium 3.9 mmol/L (3.5-5.1)
--- NOTE | 2020-08-01 09:52 | Hospitalist Progress Note ---
Date of Service August 01, 2020 Assessment & Plan (1) Parkinsons disease: Patient is an 85 year old male with PMHx Parkinson's Disease that presented initially for progressive weakness leading to multiple falls over the past month, found to have new atrial fibrillation without rapid ventricular response. Frequent Falls and Visual Hallucinations, secondary to Parkinson's Disease -Patient has had progressive weakness with increased falls x1 week since stopping home Sinemet -Orthostatics completed, within normal limits -Head CT negative for acute bleed; CT cervical spine negative for acute pathology -Neurology consulted for medication adjustment -Reduce carbidopa-levodopa 25/100mg ER to 1 tab QID (6a/10a/2p/6p) to avoid side effect -Can consider pimavanserin 34mg daily (will need to be started as an outpatient) for hallucinations -PT/OT/Neuro recommending patient be referred for PD program at [facility] for inpatient rehab services - Son "Kunal" is POA and supportive of placement an [facility] for rehab upon hospital discharge - r/o lymes as per family request. Atrial Fibrillation, new onset -EKG showing A-fib on admission -Rate well controlled without antiarrhythmics at this time -Echo with EF 65-70%, no valvular pathology, no regional wall abnormalities -Patient CHADS2-VASC2 score of 2, placing him at "moderate-high risk" for thromboembolic event -HAS-BLED score of 1, low risk of bleeding -patient is a fall risk, secondary to parkinson's disease -discussed initiation of anticoagulation therapy with son Kunal (POA), including risks and benefits. Kunal would like to hold off on anticoagulation at this time and revisit the idea after Mr. Obrien completes physical therapy and his stability is reassessed Delirium - sec to hospital stay. possibly with underlying dementia. able to say the year right. - patient recently lost his son - follow. Dispo: M/S Telemetry; awaiting placement at [facility] rehab. CM following. FEN: Regular ETC diet DVT: Lovenox, 40mg SQ, daily, SCDs Code: DNR/DNI (2) Frequent falls: (3) Atrial fibrillation, new onset: (4) Hallucination, visual: Admission and Anticipated Discharge Date Admission Date: July 30, 2020 Supervising Physician Co-Signing Physician Notes Resident Physician Supervision Note: I independently interviewed and examined the patient and verified the richmond history and physical, reviewed labs and image studies, discussed the case with the resident Dr. Leiva and agree with the findings and care plan. Subjective Patient today states he is doing alright. He asks for an empty trash bag; when I asked why he needed it, he replied, "to throw this glass ball away that I broke." He motioned down to his hands, with which he was holding his blanket. I spoke with his son Kunal (his POA) over the phone today - Kunal would like to pursue rehab placement at [facility]. I counseled Kunal about the possibility of starting a blood thinner for his A-fib - I explained the increased risk of stroke with A-fib, and the increased risk of bleeding from being on a blood thinner. Given Mr. Obrien's recent falls, Kunal would like to put the decision of anticoagulation off until after his father completes rehab and his stability can be re-assessed. Review of Systems Musculoskeletal: + stiffness and + muscle weakness Neurologic: + gait abnormality, + unsteadiness, + generalized weakness, + tremor(s) and + confusion; no headache(s) Physical Exam Constitutional: well developed and well nourished; no acute distress Eyes: PERRL, conjunctivae normal, anicteric sclerae ENMT: external ear and nose normal, oropharynx normal Neck: normal visual inspection and trachea midline Respiratory: normal respiratory effort, lungs clear to auscultation Cardiovascular: Rate/Rhythm: + tachycardic and + irregularly irregular Heart Sounds: normal S1 and normal S2 Gastrointestinal (Abdomen): normal bowel sounds, soft, nontender, no hepatosplenomegaly Skin: no rashes, warm and dry Neurologic: moves all extremities Motor/Sensory: + tremor (tongue, bilateral hands (R worse than left) ) mild dysarthria Psychiatric: Orientation: alert, oriented to person and oriented to time; + not oriented to place Results & Data Results & Data ([facility]) Vital Signs (Past 12 Hours) Vital Signs Temp Pulse Resp BP BP Pulse Ox 08/01/20 07:34 36.4 C L 101 H 20 135/89 95 08/01/20 02:30 36.5 C 111 H 20 157/75 H 96 07/31/20 23:24 36.5 C 85 18 150/88 H 98 Resident Activity Tracking Resident Involvement: Resident Care Provided Care Provided: Adult [facility] Medicine
[2020-08-01] MEDS: METOPROLOL TARTRATE 1 MG/ML VIAL IV PRN ×2 (10:58→18:21)
[2020-08-01] MEDS: ENOXAPARIN INJ 40 MG/0.4 ML SYR SQ SCH (10:58)
[2020-08-01 16:51] LABS: Lyme Ab IgG w/WB Rflx Positive (Negative); Lyme Ab IgM w/WB Rflx Equivocal (Negative)
[2020-08-02] MEDS: CARBIDOPA/LEVODOPA 25/100MG EXT REL TAB PO SCH ×4 (06:37→17:23)
--- NOTE | 2020-08-02 07:02 | Hospitalist Progress Note ---
Date of Service August 02, 2020 Assessment & Plan (1) Parkinsons disease: Patient is an 85 year old male with PMHx Parkinson's Disease that presented initially for progressive weakness leading to multiple falls over the past month, found to have new atrial fibrillation without rapid ventricular response. Frequent Falls and Visual Hallucinations, secondary to Parkinson's Disease -Patient has had progressive weakness with increased falls x1 week since stopping home Sinemet. Given new history by son Kunal today, it is possible Mr. Obrien has been off his Sinemet for a greater period of time than 1 week (no provider to prescribe refills). -Orthostatics completed, within normal limits -Head CT negative for acute bleed; CT cervical spine negative for acute pathology -Neurology consulted for medication adjustment -Reduce carbidopa-levodopa 25/100mg ER to 1 tab QID (6a/10a/2p/6p) to avoid side effect -Can consider pimavanserin 34mg daily (will need to be started as an outpatient) for hallucinations -PT/OT/Neuro recommending patient be referred for PD program at [facility] for inpatient rehab services - Son "Kunal" is POA and supportive of placement an [facility] for rehab upon hospital discharge - Excessive somnolence this am - No focal finding on exam. CT head done- negative. Atrial Fibrillation, new onset -EKG showing A-fib on admission without rapid ventricular response; -rate in the 80s today, although patient required two doses of IV Lopressor for rates in 120s yesterday -we will initiate low dose of beta jimy today for maintenance rate control agent, Atenolol 25mg, qam. -Echo with EF 65-70%, no valvular pathology, no regional wall abnormalities -Patient CHADS2-VASC score of 2, placing him at "moderate-high risk" for thromboembolic event -HAS-BLED score of 1, low risk of bleeding -patient is a fall risk, secondary to parkinson's disease -discussed initiation of anticoagulation therapy with haydee Syed (POA), including risks and benefits. Kunal would like to hold off on anticoagulation at this time and revisit the idea after Mr. Obrien completes physical therapy and his stability is reassessed Delirium - sec to hospital stay. possibly with underlying dementia. - patient recently had a son who , likely a major stressor - continue delirium precautions Lyme Disease - patient's son requested he be tested for Lyme. Per son, history of lyme disease in 2013 - IgG positive, IgM equivocal. Western blot pending - antibody testing suggestive of prior lyme disease infection vs. acute infection - will initiate treatment with doxycycline 100mg, BID. Discontinue doxycycline of Western blot returns negative for IgM Dispo: M/S Telemetry; awaiting placement at [facility] rehab. CM following. FEN: Regular ETC diet DVT: Lovenox, 40mg SQ, daily, SCDs Code: DNR/DNI (2) Frequent falls: (3) Atrial fibrillation, new onset: (4) Hallucination, visual: Admission and Anticipated Discharge Date Admission Date: July 30, 2020 Supervising Physician Co-Signing Physician Notes Resident Physician Supervision Note: I independently interviewed and examined the patient and verified the richmond history and physical, reviewed labs and image studies, discussed the case with the resident Dr. Leiva and agree with the findings and care plan. Subjective Spoke with son Kunal (POA) again today - he said his father previously followed with a [facility] PCP in [facility]. However in 2015 - Mr. Obrien abruptly stopped seeing both his PCP and his neurologist. There does not sound seem to be any apparent reason for him being lost to follow up - he simply decided he did not want to attend doctors visists any longer. Kunal also reports Mr. Obrien had a history of lyme disease in 2012. Mr. Obrien today said he was feeling fine. He is slummed over in bed and drowsy Review of Systems Musculoskeletal: + stiffness and + muscle weakness Neurologic: + gait abnormality, + unsteadiness, + generalized weakness, + tremor(s) and + confusion; no headache(s) Physical Exam Constitutional: well developed and well nourished; no acute distress Eyes: PERRL, conjunctivae normal, anicteric sclerae ENMT: external ear and nose normal, oropharynx normal Neck: normal visual inspection and trachea midline Respiratory: normal respiratory effort, lungs clear to auscultation Cardiovascular: Rate/Rhythm: regular rhythm (with several ectopic beats) and + tachycardic Heart Sounds: normal S1 and normal S2 Gastrointestinal (Abdomen): normal bowel sounds, soft, nontender, no hepatosplenomegaly Skin: no rashes, warm and dry Neurologic: moves all extremities Motor/Sensory: + tremor (tongue, bilateral hands (R worse than left) ) Psychiatric: Orientation: alert, oriented to person and oriented to time; + not oriented to place Results & Data Results & Data ([facility]) Vital Signs (Past 12 Hours) Vital Signs Temp Pulse Resp BP BP Pulse Ox 08/02/20 03:00 36.5 C 70 20 101/52 L 100 08/02/20 00:00 36.6 C 87 20 144/85 H 98 Resident Activity Tracking Resident Involvement: Resident Care Provided Care Provided: Adult Hospital Medicine
[2020-08-02] MEDS: ENOXAPARIN INJ 40 MG/0.4 ML SYR SQ SCH (09:17)
--- NOTE | 2020-08-02 10:54 | Neurology Progress Note ---
Date of Service August 02, 2020 Assessment & Plan (1) Atrial fibrillation, new onset: (2) Hallucination, visual: (3) Parkinsons disease: Amol Obrien is an 85 yo man w/ PMH of Parkinson's disease and prior tobacco abuse who p/t [facility] after recurrent falls, AMS and visual hallucinations for the last one month. Neurology consulted for medication management. # Parkinson's disease: - continue carbidopa-levodopa 25/100mg ER 1 tab qid (6a/10a/2p/6p) - can consider starting pimavanserin 34mg daily for visual hallucinations (this will need to be done as an outpatient) - recommend discharge to the PD program at [facility] for inpatient rehab services tailored to PD. If he will not agree to this, an alternative option would be home with home health PT/OT - conservative measures for orthostatic hypotension including abdominal binder, compression stockings, increasing water intake to 80 oz daily and mild salt intake with each meal - KHALIF for prior neurology records - follow up in neurology clinic in 2-3 months # Afib: - recommend starting AC given CHADSVasc score of 3. Would obtain TTE prior to determine if valvular vs non-valvular Afib Thank you for this interesting consult. Plan of care discussed with primary team. Please call or text with questions. (4) Elevated serum creatinine: Admission and Anticipated Discharge Date Admission Date: July 30, 2020 Subjective NAEs overnight. He appears delirious on examination today, was oriented to self only and frequently fell back asleep. Denied any complaints with the slightly lower dose of sinemet. Review of Systems Review of Systems: Unobtainable due to cognitive status Results & Data ([facility]) Vital Signs (Past 12 Hours) Vital Signs Temp Pulse Pulse Resp BP BP Pulse Ox 08/02/20 07:46 36.5 C 86 20 138/79 92 08/02/20 07:32 83 08/02/20 03:00 36.5 C 70 20 101/52 L 100 08/02/20 00:00 36.6 C 87 20 144/85 H 98 Exam (Neuro) Physical Exam: General Exam: GEN: NAD, sitting in chair. HEENT: No conjunctival injection, no rhinorrhea. CV: RRR, no peripheral edema PULM: Nonlabored respirations on room air. Neuro Exam: MS: Drowsy, requires frequent stimulation to stay awake. Oriented to person, not place or month/year. Speech fluent and appropriate, +mild dysarthria, no paraphasic errors. Language intact including naming, comprehension, repetition. Cognition and memory impaired. Inattentive. No neglect. CN: Visual yoon full. No extinction to double simultaneous stimuli. Unable to visualize fundi on fundoscopic exam. PERRLA OU. EOMI without nystagmus. Facial sensation intact to LT. Slight left facial droop. Hearing intact to con versation. Uvula midline with symmetric palatal elevation. Shoulder shrug normal. Tongue midline. +hypophonia MOTOR: Normal bulk and tone, mild cogwheeling in BUEs. No pronator drift. BUE strength 5-/5 at deltoids, biceps, triceps, wrist flexors and extensors, and hand grasp bilaterally. BLE strength 4+ to 5-/5 at iliopsoas, hamstrings, quadriceps, tibialis anterior, and gastrocnemius bilaterally. REFLEXES: 1+ at biceps, triceps, brachioradialis, absent patella and absent Achilles bilaterally. Flexor plantar responses bilaterally. SENSORY: Intact to LT/vibration without extinction to double simultaneous stimuli. COORDINATION: No dysmetria or ataxia on [id number] bilaterally. Normal finger taps bilaterally. GAIT: deferred given fall risk/physical status PG Care Time/CCT Total # of Minutes Spent Total Time Spent with Patient: Total time spent is greater than 50% in coordination of care (as documented) at patient's floor/unit and/or counseling patient: Coding Level of Care Code 56412 Subseq Hosp Care Lvl 2 Diagnoses Atrial fibrillation, new onset I48.91 Hallucination, visual R44.1 Parkinsons disease G20 Elevated serum creatinine R79.89
[2020-08-02] MEDS ORDERED: DOXYCYCLINE HYCLATE 100 MG CAP PO SCH (11:00)
[2020-08-02] MEDS: ATENOLOL 25 MG TABLET PO SCH (11:53)
--- NOTE | 2020-08-02 12:27 | CT Scan Report ---
CT head/brain wo con CLINICAL HISTORY: Acute change in mental status COMPARISON STUDY: 07/30/2020 TECHNIQUE: Axial CT of the brain is performed from the vertex to the skull base. IV contrast was not administered for this examination. A dose lowering technique was utilized adhering to the principles of ALARA. CT DOSE: 537.48 mGy.cm FINDINGS: No intra or extra-axial mass lesions are visualized. There is no CT evidence of acute cortical infarc tion. There is no evidence of midline shift. There is no acute hemorrhage. No calvarial fractures ar e visualized. There are patchy white matter hypodensities likely on a small vessel basis. There is no evidence of pathologic ventricular dilatation. There is no evidence of acute sinusitis IMPRESSION: No acute intracranial findings ACT 112: Negative or not required by law. Electronically signed by: Tip Gonzales M.D. 08/02/2020 12:26 PM
[2020-08-02] MEDS ORDERED: ONDANSETRON INJ 2 MG/ML 2 ML VIAL IV PRN (17:09)
[2020-08-02] MEDS ORDERED: MELATONIN 3 MG TAB PO PRN (17:09)
[2020-08-02] MEDS ORDERED: POLYETHYLENE (MIRALAX) 17 GM PACK PO PRN (17:09)
[2020-08-02] MEDS: DOXYCYCLINE HYCLATE 100 MG in DEXTROSE 5% 100 ML IV SCH (19:44)
--- NOTE | 2020-08-02 22:33 | Electrocardiogram Report ---
Test Reason : Blood Pressure : / mmHG Vent. Rate : 080 BPM Atrial Rate : 084 BPM P-R Int : 000 ms QRS Dur : 080 ms QT Int : 372 ms P-R-T Axes : 000 -42 -09 degrees QTc Int : 429 ms Poor data quality, interpretation may be adversely affected Atrial fibrillation Left axis deviation Abnormal ECG When compared with ECG of 30-JUL-2020 21:31, No significant change Confirmed by Baldev Taylor ([id number]) on 08/02/2020 10:33:19 PM Referred By: REFERRED SELF Confirmed By:Baldev Taylor
[2020-08-03] MEDS: CARBIDOPA/LEVODOPA 25/100MG EXT REL TAB PO SCH ×3 (06:15→12:27)
--- NOTE | 2020-08-03 07:01 | Hospitalist Progress Note ---
Date of Service August 03, 2020 Assessment & Plan (1) Parkinsons disease: Patient is an 85 year old male with PMHx Parkinson's Disease that presented initially for progressive weakness leading to multiple falls over the past month, found to have new atrial fibrillation without rapid ventricular response. Frequent Falls and Visual Hallucinations, secondary to Parkinson's Disease -Patient has had progressive weakness with increased falls x1 week since stopping home Sinemet. Given new history by son Kunal today, it is possible Mr. Obrien has been off his Sinemet for a greater period of time than 1 week (no provider to prescribe refills). -Orthostatics completed, within normal limits -Head CT negative for acute bleed; CT cervical spine negative for acute pathology -Neurology consulted for medication adjustment -Reduce carbidopa-levodopa 25/100mg ER to 1 tab QID (6a/10a/2p/6p) to avoid side effect -Can consider pimavanserin 34mg daily (will need to be started as an outpatient) for hallucinations -PT/OT/Neuro recommending patient be referred for PD program at [facility] for inpatient rehab services - Son "Kunal" is POA and supportive of placement an [facility] for rehab upon hospital discharge - Excessive somnolence this am - No focal finding on exam. CT head done- negative. Atrial Fibrillation, new onset -EKG showing A-fib on admission without rapid ventricular response; -rate in the 80s today, although patient required two doses of IV Lopressor for rates in 120s yesterday -we will initiate low dose of beta jimy today for maintenance rate control agent, Atenolol 25mg, qam. -Echo with EF 65-70%, no valvular pathology, no regional wall abnormalities -Patient CHADS2-VASC score of 2, placing him at "moderate-high risk" for thromboembolic event -HAS-BLED score of 1, low risk of bleeding -patient is a fall risk, secondary to parkinson's disease -discussed initiation of anticoagulation therapy with haydee Syed (POA), including risks and benefits. Kunal would like to hold off on anticoagulation at this time and revisit the idea after Mr. Obrien completes physical therapy and his stability is reassessed Delirium - sec to hospital stay. possibly with underlying dementia. - patient recently had a son who , likely a major stressor - continue delirium precautions Lyme Disease - patient's son requested he be tested for Lyme. Per son, history of lyme disease in 2013 - IgG positive, IgM equivocal. Western blot pending - antibody testing suggestive of prior lyme disease infection vs. acute infection - will initiate treatment with doxycycline 100mg, BID. Discontinue doxycycline of Western blot returns negative for IgM Dispo: M/S Telemetry; awaiting placement at [facility] rehab. CM following. FEN: Regular ETC diet DVT: Lovenox, 40mg SQ, daily, SCDs Code: DNR/DNI (2) Frequent falls: (3) Atrial fibrillation, new onset: (4) Hallucination, visual: Admission and Anticipated Discharge Date Admission Date: July 30, 2020 Physical Exam Constitutional: well developed and well nourished; no acute distress Eyes: PERRL, conjunctivae normal, anicteric sclerae ENMT: external ear and nose normal, oropharynx normal Neck: normal visual inspection and trachea midline Respiratory: normal respiratory effort, lungs clear to auscultation Cardiovascular: Rate/Rhythm: regular rhythm (with several ectopic beats) and + tachycardic Heart Sounds: normal S1 and normal S2 Gastrointestinal (Abdomen): normal bowel sounds, soft, nontender, no hepatosplenomegaly Skin: no rashes, warm and dry Neurologic: moves all extremities Motor/Sensory: + tremor (tongue, bilateral hands (R worse than left) ) Psychiatric: Orientation: alert, oriented to person and oriented to time; + not oriented to place Results & Data Results & Data ([facility]) Vital Signs (Past 12 Hours) Vital Signs Temp Pulse Resp BP Pulse Ox 08/03/20 04:00 36.7 C 78 18 136/83 98 08/02/20 23:00 36.8 C 85 18 132/89 98 Resident Activity Tracking Resident Involvement: Resident Care Provided Care Provided: Adult Hospital Medicine
[2020-08-03] MEDS: DOXYCYCLINE HYCLATE 100 MG in DEXTROSE 5% 100 ML IV SCH (07:44)
[2020-08-03] MEDS: ENOXAPARIN INJ 40 MG/0.4 ML SYR SQ SCH (07:44)
[2020-08-03] MEDS: ATENOLOL 25 MG TABLET PO SCH (07:45)
--- NOTE | 2020-08-03 10:30 | Discharge Summary ---
Date of Service August 03, 2020 Admission HPI Per Admitting Provider Amol Obrien is a pleasant 85yo C male with history of Parkinson's disease presenting with frequent falls. Patient resides at home with his son and is fairly active and independent at baseline. He has had progressive decline in function and mobility over the last few weeks. He has been needing a walker to ambulate x 1 week. Patient has fallen multiple times over the last three days. He has had head trauma as well as buttock trauma requiring suturing on 07/27/20. Patient states that he "gets in a hurry" sometimes and that he loses his balance. Sometimes he thinks he may be tripping over things in his home. He denies chest pain/palpitations/LOC/seizures. He reports increase in visual hallucinations - states that sometimes he thinks he sees his son sitting in the chair in his room or the neighbor girl sitting at his kitchen table. Patient has longstanding diagnosis of Parkinson's disease. He does not follow routinely with Neurology - last seen in 2012. He is currently on Carbidopa- Levodopa but states that he hasn't been taking them over the last week or so because they make him too tired. No additional complaints at this time. No known Covid-19 exposure. Rapid testing today NEGATIVE Admission Exam Per Admitting Provider General: patient resting comfortably, NAD, non-toxic in appearance, AA&O x 3 Skin: scattered ecchymoses on forearms, abrasion on left elbow, several skin tears on arms, small cuts and bruises on face, no active bleeding or evidence of secondary infection HEENT: PERRL, EOMI, anicteric sclera, conjunctiva without injection, external ear normal to inspection and nontender, nares patent, moist mucus membranes, dentition intact, no oropharyngeal lesions, neck supple, trachea midline, no LAD, no thyromegaly, no JVD Heart: +S1/S2, regular with ectopy, no m/r/g Lungs: equal air entry bilaterally, no rales/rhonchi/wheezes Abd: +BS, soft, NT/ND, no masses/organomegaly/ascites Ext: warm, 2+ pulses in UE/LE bilaterally, no clubbing/cyanosis or edema Neuro: AA&O x 3, speech clear, resting tremor noted in hands and mouth, sensation to light touch intact, strength intact 5/5, patient right hand dominant, no cogwheel rigidity, poor balance with ambulation Principal Diagnosis Parkinsons Disease Discharge Exam Constitutional: well developed and well nourished; no acute distress Eyes: PERRL, conjunctivae normal, anicteric sclerae ENMT: external ear and nose normal, oropharynx normal Neck: normal visual inspection and trachea midline Respiratory: normal respiratory effort, lungs clear to auscultation Cardiovascular: Rate/Rhythm: regular rhythm (with several ectopic beats) and + tachycardic Heart Sounds: normal S1 and normal S2 Gastrointestinal (Abdomen): normal bowel sounds, soft, nontender, no hepatosplenomegaly Skin: no rashes, warm and dry Neurologic: moves all extremities Motor/Sensory: + tremor (tongue, bilateral hands (R worse than left) ) Psychiatric: Orientation: alert, oriented to person; oriented to place; oriented to time Discharge Data Allergies Allergy/AdvReac Type Severity Reaction Status Date / Time No Known Allergies Allergy Verified 07/30/20 20:37 Consultations 07/30/20 20:16 ED Decision to Admit Stat 07/30/20 22:56 Consult Neurology Routine Ordered Studies 07/30/20 18:52 CT cervical spine wo con Stat CT head/brain wo con Stat 08/02/20 12:06 CT head/brain wo con Stat Hospital Course (1) Parkinsons disease: Patient is an 85 year old male with PMHx Parkinson's Disease that presented initially for progressive weakness leading to multiple falls over the past month, found to have new atrial fibrillation without rapid ventricular response. Frequent Falls and Visual Hallucinations, secondary to Parkinson's Disease -Patient has had progressive weakness with increased falls x1 week. Given new history by haydee Syed today, it is possible Mr. Obrien has been off his Sinemet for several years (last saw physician in 2016). -Orthostatics completed, within normal limits -Head CT negative for acute bleed; CT cervical spine negative for acute pathology -Neurology consulted for medication adjustment -Reduce carbidopa-levodopa 25/100mg ER to 1 tab QID (6a/10a/2p/6p) to avoid side effect -Can consider pimavanserin 34mg daily (will need to be started as an outpatient) for hallucinations - disease is advanced at this point, if not approaching end stage -PT/OT/Neuro recommending patient be referred for PD program at [facility] for inpatient rehab services -Son "Kunal" is POA and supportive of placement an [facility] for rehab upon hospital discharge Outpatient items to do: Titrate parkinsons meds as appropriate. Consider pimavanserin as above Atrial Fibrillation, new onset -EKG showing A-fib on admission without rapid ventricular response -continue Atenolol 25mg, qam for rate control -Echo with EF 65-70%, no valvular pathology, no regional wall abnormalities -Patient CHADS2-VASC score of 2, placing him at "moderate-high risk" for thromboembolic event -HAS-BLED score of 1, low risk of bleeding -patient is a fall risk, secondary to parkinson's disease -discussed initiation of anticoagulation therapy with haydee Syed (POA), including risks and benefits. Kunal would like to hold off on anticoagulation at this time and revisit the idea after Mr. Obrien completes physical therapy and his stability is reassessed Outpatient items to do: Strongly consider anticoagulation after patient completes rehab for stroke prevention. Delirium - sec to hospital stay. possibly with underlying parkinsons dementia. - patient recently had a son who , likely a major stressor - continue delirium precautions Lyme Disease - patient's son requested he be tested for Lyme. Per son, history of lyme disease in 2013 - IgG positive, IgM equivocal. Western blot pending - antibody testing suggestive of prior lyme disease infection vs. acute infection - will initiate treatment with doxycycline 100mg, BID. Discontinue doxycycline of Western blot returns negative for IgM (2) Frequent falls: (3) Atrial fibrillation, new onset: (4) Hallucination, visual: Total Time Total Time Spent Total Time Spent (In Minutes): <30 Discharge Plan Discharge Items Patient Disposition: Transfer Inpatient Rehab Fac Reason For Visit: FALLS, PD Discharge Diagnosis: Atrial Fibrillation Activity: Resume your previous activity Non-emergency contact: Primary Care Provider Call non-emergency contact if: your symptoms worsen Follow-up/Referrals: PCP,NO [Primary Care Provider] - Diet: Heart Healthy Addtl Attending Provider Instructions: Patient is an 85 year old male with PMHx Parkinson's Disease that presented initially for progressive weakness leading to multiple falls over the past month, found to have new atrial fibrillation without rapid ventricular response. Frequent Falls and Visual Hallucinations, secondary to Parkinson's Disease -Patient has had progressive weakness with increased falls x1 week. Given new history by son Kunal today, it is possible Mr. Obrien has been off his Sinemet for several years (last saw physician in 2016). -Orthostatics completed, within normal limits -Head CT negative for acute bleed; CT cervical spine negative for acute pathology -Neurology consulted for medication adjustment -Reduce carbidopa-levodopa 25/100mg ER to 1 tab QID (6a/10a/2p/6p) to avoid side effect -Can consider pimavanserin 34mg daily (will need to be started as an outpatient) for hallucinations -disease is advanced at this point, if not approaching end stage -PT/OT/Neuro recommending patient be referred for PD program at [facility] for inpatient rehab services Outpatient items to do: titrate parkinsons meds as needed Atrial Fibrillation, new onset -EKG showing A-fib on admission without rapid ventricular response -continue Atenolol 25mg, qam for rate control -Echo with EF 65-70%, no valvular pathology, no regional wall abnormalities -Patient CHADS2-VASC score of 2, placing him at "moderate-high risk" for thromboembolic event -HAS-BLED score of 1, low risk of bleeding -patient is a fall risk, secondary to parkinson's disease -discussed initiation of anticoagulation therapy with son Kunal (POA), including risks and benefits. Kunal would like to hold off on anticoagulation at this time and revisit the idea after Mr. Obrien completes physical therapy and his stability is reassessed Outpatient items to do: Strongly consider anticoagulation after patient completes rehab for stroke prevention. Delirium - sec to hospital stay. possibly with underlying parkinsons dementia. - patient recently had a son who , likely a major stressor - continue delirium precautions Lyme Disease - patient's son requested he be tested for Lyme. Per son, history of lyme disease in 2012 - IgG positive, IgM equivocal. Western blot pending - antibody testing suggestive of prior lyme disease infection vs. acute infection - will initiate treatment with doxycycline 100mg, BID (currently on day 2) - Discontinue doxycycline of Western blot returns negative for IgM Pending Studies at Discharge: No Stand-Alone Forms: My [facility] Skilled Items Patient informed of condition?: Yes DNR: Yes Discharge Level of Care: Acute rehab Communicable Disease: No Discharge Prognosis: Stable Lines: None Urinary Catheter: No Medications and DC Order Prescriptions: New doxycycline hyclate 100 mg Capsule 100 mg PO BID 9 Days Qty: 18 RF: 0 atenolol 25 mg Tablet 25 mg PO QAM Qty: 30 RF: 0 carbidopa-levodopa 25-100 mg Tablet Extended Release 1 tab PO 0600,1000,1400,1800 30 Days Qty: 120 RF: 0 Discontinued carbidopa-levodopa 25-100 mg tablet extended release See Rx Instructions .ROUTE .COMPLEX RF: 0 Discharge Orders: Discharge Order (Routine); Ordered 08/03/20 Ordered By: Kaylynn Buck/Other Patient Handouts: Stroke Prevent Live W Atrial Fib Admission Data Admit Date/Time: 07/30/20 21:52 Attending Provider: Sukh Trevino Admit Provider: Haydee Guzman Primary Care Provider: PCP,NO Other Providers: Haydee Guzman ; Luana Montes De Oca ; [facility] ; Tamanna Florez Other Interventions: Discharge Summary Assessment (RN) Last Done: 08/03/20 12:17 Supervising Physician Co-Signing Physician Notes I personally examined the patient and verified all [place] points of history and exam, discussed case, and agree with decision making with Dr Michael. feeling ok feeling stronger than before. discussed rehab - initially wants to go home but after further discussions seems to understand need for rehab vitals noted nad fatigued, some slow response and tremor. no focal neuro d eficits. skin no rashes no pallor or icterus parksinsons/frequent falls/weakness/deconditioning - med regimen as above/as per neuro. stable for rehab. new dx afib - rate controlled on atenolol. would initiate anticoagulation to mitigate stroke risk but OK to wait until he's a little stronger as per discussions between dr michael and pt's son otherwise as above Resident Activity Tracking Resident Involvement: Resident Care Provided Care Provided: Adult Hospital Medicine
--- NOTE | 2020-08-03 15:09 | Billing Data ---
Date of Service August 03, 2020 Coding Level of Care Code D/C Day Management <30 mins
[2020-08-06 01:04] LABS: 18KDIGG Band REACTIVE; 23KDIGG Band NON-REACTIVE; 23KDIGM Band NON-REACTIVE; 28KDIGG Band REACTIVE; 30KDIGG Band REACTIVE; 39KDIGG Band REACTIVE; 39KDIGM Band NON-REACTIVE; 41KDIGG Band REACTIVE; 41KDIGM Band NON-REACTIVE; 45KDIGG Band REACTIVE; 58KDIGG Band REACTIVE; 66KDIGG Band REACTIVE; 93KDIGG Band REACTIVE; Lyme Antibodies, WB IgG POSITIVE (NEGATIVE); Lyme Antibodies, WB IgM NEGATIVE (NEGATIVE)
== END 2020-08-03 15:05 ==
LOC: ED 18:32 → SUATTDRO 21:52 → 2N 21:52 → INTOOBSV 21:52 → 2N 22:19

== ENCOUNTER 2021-09-09 15:26 | Inpatient (IN) ==
--- NOTE | 2021-09-09 16:58 | XRay Report ---
XR chest 1V portable CLINICAL HISTORY: weakness. Evaluate cardiopulmonary status COMPARISON STUDY: 07/30/2020 TECHNIQUE: 1 view of the chest FINDINGS: Single frontal view of the chest demonstrates the cardiomediastinal silhouette to be within normal li mits. The lungs are clear of alveolar opacities. Evidence for calcifications is again seen at the rig ht lung base and superimposed over the liver. These may be pleural-based. They are unchanged. There i s no evidence for pleural effusion. There is no evidence for vascular congestion. There is no acute o sseous pathology. IMPRESSION: No acute cardiopulmonary disease. ACT 112: Negative or not required by law. Electronically signed by: Juan Strickland M.D. 09/09/2021 4:57 PM
[2021-09-09 17:31] LABS: Basophils # (auto) 0.04 K/uL (0-0.2); Basophils % (auto) 0.4 %; Eosinophils # (auto) 0.15 K/uL (0-0.5); Eosinophils % (auto) 1.6 %; Hematocrit (blood only) 41.7 % (42-52); Hemoglobin 13.5 g/dL (14.0-18.0); Immature Granulocytes # (auto) 0.02 K/uL (0.00-0.02); Immature Granulocytes % (auto) 0.2 %; Lymphocytes # (auto) 1.12 K/uL (1.2-3.4); Lymphocytes % (auto) 12.1 %; Mean Corpuscular Hemoglobin 29.7 pg (25-34); Mean Corpuscular Hgb Conc 32.4 g/dL (32-36); Mean Corpuscular Volume 91.6 fL (80-100); Mean Platelet Volume 9.3 fL (7.4-10.4); Monocytes # (auto) 0.89 K/uL (0.11-0.59); Monocytes % (auto) 9.6 %; Neutrophils # (auto) 7.06 K/uL (1.4-6.5); Neutrophils % (auto) 76.1 %; Platelet Count 374 K/uL (130-400); RDW Coefficient of Variation 14.1 % (11.5-14.5); RDW Standard Deviation 47.5 fL (36.4-46.3); Red Blood Count 4.55 M/uL (4.7-6.1); White Blood Count 9.28 K/uL (4.8-10.8)
[2021-09-09 17:37] LABS: Appearance Urine Clear (Clear); Bacteria Urine Automated Negative (Negative); Bilirubin Urine Negative (Negative); Blood Urine Negative (Negative); Color Urine Dark Yellow; Epithelial Cell Urine Auto >30 /lpf (0-5); Glucose Urine UA Negative (Negative); Ketones Urine Trace (Negative); Leukocyte Esterase Urine Negative (Negative); Nitrite Urine Negative (Negative); Protein Urine Trace (Negative); Specific Gravity Urine 1.026 (1.000-1.030); Urobilinogen Urine Negative (Negative)
[2021-09-09 18:04] LABS: Alanine Aminotransferase 8 (12-78); Albumin Level 4.1 gm/dl (3.4-5.0); Alkaline Phosphatase 130 U/L (45-117); Aspartate Aminotransferase 12 U/L (15-37); BUN Creatinine Ratio 15.2 (10-20); Bilirubin,Total 1.1 mg/dl (0.2-1); Blood Urea Nitrogen 18 mg/dl (7-18); Calcium 9.7 mg/dl (8.5-10.1); Carbon Dioxide 29 mmol/L (21-32); Chloride 105 mmol/L (98-107); Est GFR (African American) 66.9 ml/min; Est GFR (Non-African American) 57.7 ml/min; Glucose 105 mg/dl (70-99); Magnesium 2.5 mg/dl (1.8-2.4); Potassium 3.7 mmol/L (3.5-5.1); Sodium 138 mmol/L (136-145); Total Protein 8.1 gm/dl (6.4-8.2)
--- NOTE | 2021-09-09 21:09 | CT Scan Report ---
HEAD CT NONCONTRAST CT DOSE: 537.48 mGy.cm HISTORY: confusion, fall TECHNIQUE: Multiaxial CT images of the head were performed without the use of intravenous contrast. A utomated exposure control was utilized for this study. A dose lowering technique was utilized adheri ng to the principles of ALARA. Comparison: Head CT 08/02/2020. Findings: The paranasal sinuses and mastoid air cells are clear. The calvarium and skull base are int act. The ventricles and sulci demonstrate mild age-related involutional changes. There is no mass, mi dline shift, or acute infarct. Periventricular white matter hypodensity favors microvascular ischemic change. This remains unchanged. There is a trace interhemispheric subdural hematoma measuring up to 2 mm in thickness. Impression: Trace interhemispheric acute subdural hematoma measuring up to 2 mm in thickness. Follow-up head CT i n 6 to 12 hours recommended to ensure stability. ACT 112: Negative or not required by law. Electronically signed by: Derrek Viramontes M.D. 09/09/2021 9:08 PM
[2021-09-09] MEDS ORDERED: SODIUM CHLORIDE 0.9% 500 ML IV ONE (23:03)
--- NOTE | 2021-09-10 02:08 | Emergency Department Note ---
Impression & Plan Frequent falls, Parkinsons disease, Intermittent confusion, Dementia, Subdural hematoma ED Provider Note NAME: GIACOMO CLOUD AGE: 86 SEX: M ARRIVES VIA: Ambulance INFORMANT: Patient, Son/Evangelist ([phone]) ED PROVIDER(S): Peter Castellano MD CHIEF COMPLAINT: Recurrent falls, weakness, confusion. PLAN: Disposition: Admit MEDICAL DECISION MAKING: The patient is a pleasant 86-year-old gentleman with a past medical history of Parkinson's disease, dementia, ambulatory dysfunction, atrial fibrillation on on AC 10/13 fall risk who presents to the emergency department from home via EMS due to the patient's son who the patient lives with being concerned for persistent and worsening confusion over the past several weeks where he has had repeated falls and was seen at [facility] 2 weeks ago after hitting his head and had keith placed in his scalp which have since been removed. This provider discussed the patient's presentation with the patient's son (Evangelist) who reports that he had followed up with his PCP recently and there was suspicion for possible reinfection with Lyme disease in the setting of having similar confusion a year ago when this was initially diagnosed. Thus, per their report he was started on doxycycline last week. However, the patient's son reports she has not improved with this treatment. This morning the patient was confused and appeared to be hallucinating saying he "had to go to school". He further adds that he is up all night looking after his father has he is worried that he will get up and fall again. He feels his father needs rehab to improve and does not feel as though he can take care of him safely. There is no report of any fevers, nausea, vomiting, diarrhea or urinary symptoms. On arrival the patient is alert and oriented to self, place and situation being able to describe that he has had several falls recently including his visit to [facility]. However he denies any pain at this time and had expressed he does not want inpatient rehab. On arrival the patient is fatigued appearing but no acute distress, afebrile stable vital signs. His head is atraumatic. He has no focal neurologic d eficits. He exhibits generalized weakness throughout. He has skin tears to the left elbow. EKG without overt acute ischemia. Chest x-ray negative for acute cardiopulmonary process. WBC and platelets within normal limits. H/H similar to prior values. Chemistry without metabolic acidosis. LFTs without significant abnormality. Electrolytes without significant abnormality. UA demonstrates WBCs however with greater than 30 epithelial cells and no bacteria. Covid-19 RNA, NAAT negative. CT of the head without contrast interpreted "trace anterior hemispheric acute subdural hematoma measuring up to 2 mm in thickness and repeat CT in 6 to 12 hours was recommended to ensure stability." Given the patient appears to be at his recent baseline and the last reported episode where the patient hit his head was 2 weeks ago patient continued to be observed to have repeat CT imaging which was expanded to include his cervical spine, chest and abdomen pelvis. Repeat CT of the head was stable per preliminary stat rad review. CT of the c- spine, chest and abdomen pelvis was negative for acute traumatic findings. Given stable trace subdural hematoma reasonable to keep the patient here for further management. Case was discussed with Dr. Cash, [facility] [place] [place] hospitalist, who will evaluate the patient for admission. The patient's son was updated over the phone and agreed with plan for admission. Of note, I was informed by RN that the patient did have black stool in his brief that was trace Hemoccult positive. The patient's H/H is stable to improved compared to prior values. Admitting team was updated. Triage Nursing notes reviewed and agree them. Prior medical records reviewed Vital Signs: reviewed and remarkable for no significant abnormalities Differential diagnosis: Infection, dehydration, metabolic abnormality, hypo/hyperglycemia, electrolyte disturbance, anemia, hypoxia, cardiac sources, intracerebral event, toxicologic, neurologic, as well as other pathologies. ER treatment provided: See below. Diagnostics interpreted by me: ECG: Atrial fibrillation, 89 bpm, no ectopy, nonspecific ST abnormality, no overt ST elevation or depression, QTC 425, cures 82. Cardiac Monitoring: An order for continuous cardiac monitoring was placed and demonstrated Atrial fibrillation, 89 bpm, no ectopy. Laboratory studies: See below Imaging studies: See below Consultation(s): Case was discussed with Dr. Cash [facility] [place] [place] hospitalist, who will evaluate the patient for admission. HPI: The patient is a pleasant 86-year-old gentleman with a past medical history of Parkinson's disease, dementia, ambulatory dysfunction, atrial fibrillation on on AC 10/13 fall risk who presents to the emergency department from home via EMS due to the patient's son who the patient lives with being concerned for persistent and worsening confusion over the past several weeks where he has had repeated falls and was seen at [facility] 2 weeks ago after hitting his head and had keith placed in his scalp which have since been removed. This provider discussed the patient's presentation with the patient's son (Evangelist) who reports that he had followed up with his PCP recently and there was suspicion for possible reinfection with Lyme disease in the setting of having similar confusion a year ago when this was initially diagnosed. Thus, per their report he was started on doxycycline last week. However, the patient's son reports she has not improved with this treatment. This morning the patient was confused and appeared to be hallucinating saying he "had to go to school". He further adds that he is up all night looking after his father has he is worried that he will get up and fall again. He feels his father needs rehab to improve and does not feel as though he can take care of him safely. There is no report of any fevers, nausea, vomiting, diarrhea or urinary symptoms. On arrival the patient is alert and oriented to self, place and situation being able to describe that he has had several falls recently including his visit to [facility]. However he denies any pain at this time and had expressed he does not want inpatient rehab. ROS: See above HPI for pertinent positives & negatives. A total of 10 systems reviewed and were otherwise negative. PAST MEDICAL HISTORY:See Below PAST SURGICAL HISTORY:See Below FAMILY HISTORY:See Below SOCIAL HISTORY:See Below HOME MEDICATIONS:See Below ALLERGIES:See Below VITALS:See Below PHYSICAL EXAMINATION: GENERAL: Awake, alert, chronically ill fatigued-appearing, in no distress HENT: Normocephalic, atraumatic. Oropharynx with dry mucous membranes and otherwise unremarkable. EYES: Normal conjunctiva. Sclera non-icteric. NECK: Supple. No nuchal rigidity. FROM. No JVD. RESPIRATORY: Clear to auscultation. CARDIAC: Regular rate, normal rhythm. Extremities warm and well perfused. Pulses equal. ABDOMEN: Soft, non-distended. No tenderness to palpation. No rebound or guarding. No masses. RECTAL: Deferred. MUSCULOSKELETAL: Chest examination reveals no tenderness. The back is symmetrical on inspection without obvious abnormality. There is no CVA tenderness to palpation. No joint edema. Skin tears to the left elbow. LOWER EXTREMITIES: Calves are equal size bilaterally and non-tender. No edema. No discoloration. NEURO: Normal sensorium. No sensory or motor deficits noted. SKIN: No rash or jaundice noted. ED COURSE: Critical Care: I have personally spent greater than 35 minutes of critical care time in the direct management of this patient. This includes bedside care, interpretation of diagnostic studies, and testing, discussion with consultants, patient, and family members, and other required patient management activities. This 35 minutes is in excess of all separately billable procedures. Peter Castellano MD Past Med/Surg History Medical History Atrial fibrillation Frequent falls Hallucination, visual Parkinsons disease Surgical History No significant past surgical history Family History Other No significant family history Social History Smoking Status: Never smoker Tobacco Type: Cigarettes Hx Alcohol Use: No Hx Substance Use: No Preferred Language: Uzbek Communication Ability: Effective Process Environmental Technician Required: No Beliefs That Will Affect Care: None Current Living Situation: Family Current Living Situation Comment: lives with son Evangelist Feels Safe at Home: Yes Assistive Devices: Walker Allergies Allergies Allergy/AdvReac Type Severity Reaction Status Date / Time No Known Allergies Allergy Verified 09/09/21 20:31 Home Meds Home Medications Medication Instructions Recorded Confirmed carbidopa ER 25 mg-levodopa 100 mg See Rx Instructions .ROUTE .COMPLEX 09/09/21 09/09/21 tablet,extended release doxycycline hyclate 100 mg capsule 100 mg PO BID 09/09/21 09/09/21 Results & Data (ED) Vital Signs Vital Signs - 24 hr 09/09/21 15:38 09/09/21 21:00 09/09/21 23:44 Temperature 36.6 C Temperature Source Temporal Artery Scan Pulse Rate 103 H Pulse Rate [Finger] 101 H 95 H Respiratory Rate 18 20 21 Blood Pressure 127/82 Blood Pressure [Left Arm] 152/95 H 140/88 Blood Pressure Mean 97 Blood Pressure Mean [Left Arm] 114 105 Pulse Oximetry 98 94 97 Oxygen Delivery Method Room Air Room Air Sepsis Recent Fever Within 48 Hours No Sepsis New/Unexplained Change in Mental Status N/A Sepsis Action Taken by Nursing No Action Required 09/10/21 01:28 09/10/21 02:01 09/10/21 03:00 Temperature Temperature Source Pulse Rate Pulse Rate [Finger] 110 H 101 H 100 H Respiratory Rate 26 H 23 Blood Pressure Blood Pressure [Left Arm] 122/96 145/64 H 140/87 Blood Pressure Mean Blood Pressure Mean [Left Arm] 104 91 104 Pulse Oximetry 99 97 Oxygen Delivery Method Sepsis Recent Fever Within 48 Hours Sepsis New/Unexplained Change in Mental Status Sepsis Action Taken by Nursing Laboratory Data Attestation: I reviewed the patient's lab results. Result diagrams: 09/09/21 17:21 09/09/21 17:21 Lab Results 09/09/21 09/09/21 09/09/21 Range/Units 17:16 17:19 17:21 WBC 9.28 (4.8-10.8) K/uL RBC 4.55 L (4.7-6.1) M/uL Hgb 13.5 L (14.0-18.0) g/dL Hct 41.7 L (42-52) % MCV 91.6 (80-100) fL MCH 29.7 (25-34) pg MCHC 32.4 (32-36) g/dL RDW Std Deviation 47.5 H (36.4-46.3) fL RDW Coeff of Shira 14.1 (11.5-14.5) % Plt Count 374 (130-400) K/uL MPV 9.3 (7.4-10.4) fL Immature Gran % (Auto) 0.2 % Neut % (Auto) 76.1 % Lymph % (Auto) 12.1 % School[place] % (Auto) 9.6 % Eos % (Auto) 1.6 % Baso % (Auto) 0.4 % Neut # (Auto) 7.06 H (1.4-6.5) K/uL Lymph # (Auto) 1.12 L (1.2-3.4) K/uL Schoolcraft # (Auto) 0.89 H (0.11-0.59) K/uL Eos # (Auto) 0.15 (0-0.5) K/uL Baso # (Auto) 0.04 (0-0.2) K/uL Immature Gran # (Auto) 0.02 (0.00-0.02) K/uL Sodium (136-145) mmol/L Potassium (3.5-5.1) mmol/L Chloride (98-107) mmol/L Carbon Dioxide (21-32) mmol/L Anion Gap (3-11) BUN (7-18) mg/dl Creatinine (0.6-1.4) mg/dl Est Cr Clr Drug Dosing Est GFR ( Amer) ml/min Est GFR (Non-Af Amer) ml/min BUN/Creatinine Ratio (10-20) Glucose (70-99) mg/dl POC Glucose (70-99) mg/dl Calcium (8.5-10.1) mg/dl Magnesium (1.8-2.4) mg/dl Total Bilirubin (0.2-1) mg/dl AST (15-37) U/L ALT (12-78) Alkaline Phosphatase (45-117) U/L Total Protein (6.4-8.2) gm/dl Albumin (3.4-5.0) gm/dl Globulin (2.5-4.0) gm/dl Albumin/Globulin Ratio (0.9-2) Urine Color Dark Yellow Urine Appearance Clear (Clear) Urine pH 5.0 (4.5-7.5) Ur Specific Nerinx 1.026 (1.000-1.030) Urine Protein Trace H (Negative) Urine Glucose (UA) Negative (Negative) Urine Ketones Trace H (Negative) Urine Blood Negative (Negative) Urine Nitrite Negative (Negative) Urine Bilirubin Negative (Negative) Urine Urobilinogen Negative (Negative) Ur Leukocyte Esterase Negative (Negative) Urine WBC (Auto) 5-10 H (0-5) /hpf Urine RBC (Auto) 10-30 H (0-4) /hpf U Hyaline Cast (Auto) 5-10 H (0-5) /lpf U Epithel Cells (Auto) >30 H (0-5) /lpf Urine Bacteria (Auto) Negative (Negative) SARS-CoV-2, RNA, NAAT NEGATIVE (NEGATIVE) 09/09/21 09/09/21 Range/Units 17:21 23:54 WBC (4.8-10.8) K/uL RBC (4.7-6.1) M/uL Hgb (14.0-18.0) g/dL Hct (42-52) % MCV (80-100) fL MCH (25-34) pg MCHC (32-36) g/dL RDW Std Deviation (36.4-46.3) fL RDW Coeff of Shira (11.5-14.5) % Plt Count (130-400) K/uL MPV (7.4-10.4) fL Immature Gran % (Auto) % Neut % (Auto) % Lymph % (Auto) % Schoolcraft % (Auto) % Eos % (Auto) % Baso % (Auto) % Neut # (Auto) (1.4-6.5) K/uL Lymph # (Auto) (1.2-3.4) K/uL Schoolcraft # (Auto) (0.11-0.59) K/uL Eos # (Auto) (0-0.5) K/uL Baso # (Auto) (0-0.2) K/uL Immature Gran # (Auto) (0.00-0.02) K/uL Sodium 138 (136-145) mmol/L Potassium 3.7 (3.5-5.1) mmol/L Chloride 105 (98-107) mmol/L Carbon Dioxide 29 (21-32) mmol/L Anion Gap 4.0 (3-11) BUN 18 (7-18) mg/dl Creatinine 1.15 (0.6-1.4) mg/dl Est Cr Clr Drug Dosing Not Reportable Est GFR ( Amer) 66.9 ml/min Est GFR (Non-Af Amer) 57.7 ml/min BUN/Creatinine Ratio 15.2 (10-20) Glucose 105 H (70-99) mg/dl POC Glucose 111 H (70-99) mg/dl Calcium 9.7 (8.5-10.1) mg/dl Magnesium 2.5 H (1.8-2.4) mg/dl Total Bilirubin 1.1 H (0.2-1) mg/dl AST 12 L (15-37) U/L ALT 8 L (12-78) Alkaline Phosphatase 130 H (45-117) U/L Total Protein 8.1 (6.4-8.2) gm/dl Albumin 4.1 (3.4-5.0) gm/dl Globulin 4.0 (2.5-4.0) gm/dl Albumin/Globulin Ratio 1.0 (0.9-2) Urine Color Urine Appearance (Clear) Urine pH (4.5-7.5) Ur Specific Nerinx (1.000-1.030) Urine Protein (Negative) Urine Glucose (UA) (Negative) Urine Ketones (Negative) Urine Blood (Negative) Urine Nitrite (Negative) Urine Bilirubin (Negative) Urine Urobilinogen (Negative) Ur Leukocyte Esterase (Negative) Urine WBC (Auto) (0-5) /hpf Urine RBC (Auto) (0-4) /hpf U Hyaline Cast (Auto) (0-5) /lpf U Epithel Cells (Auto) (0-5) /lpf Urine Bacteria (Auto) (Negative) SARS-CoV-2, RNA, NAAT (NEGATIVE) Administered Medications Discontinued Medications Sodium Chloride (Nss) 500 mls @ 999 mls/hr IV .Q31M ONE Stop: 09/09/21 23:33 Last Infusion: 09/10/21 00:35 Dose: 0 mls/hr Documented by: [id number] Admin: 09/10/21 00:01 Dose: 999 mls/hr Documented by: [id number] Imaging Data Radiologist's Impression: Chest X-Ray 09/09/21 16:32 XR chest 1V portable CLINICAL HISTORY: weakness. Evaluate cardiopulmonary status COMPARISON STUDY: 07/30/2020 TECHNIQUE: 1 view of the chest FINDINGS: Single frontal view of the chest demonstrates the cardiomediastinal silhouette to be within normal limits. The lungs are clear of alveolar opacities. Evidence for calcifications is again seen at the right lung base and superimposed over the liver. These may be pleural-based. They are unchanged. There is no evidence for pleural effusion. There is no evidence for vascular congestion. There is no acute osseous pathology. IMPRESSION: No acute cardiopulmonary disease. ACT 112: Negative or not required by law. Electronically signed by: Juan Strickland M.D. 09/09/2021 4:[address] 09/09/21 20:[address] DOSE: 537.48 mGy.cm HISTORY: confusion, fall TECHNIQUE: Multiaxial CT images of the head were performed without the use of intravenous contrast. Automated exposure control was utilized for this study. A dose lowering technique was utilized adhering to the principles of ALARA. Comparison: Head CT 08/02/2020. Findings: The paranasal sinuses and mastoid air cells are clear. The calvarium and skull base are intact. The ventricles and sulci demonstrate mild age-related involutional changes. There is no mass, midline shift, or acute infarct. Periventricular white matter hypodensity favors microvascular ischemic change. This remains unchanged. There is a trace interhemispheric subdural hematoma measuring up to 2 mm in thickness. Impression: Trace interhemispheric acute subdural hematoma measuring up to 2 mm in thickness. Follow-up head CT in 6 to 12 hours recommended to ensure stability. ACT 112: Negative or not required by law. Electronically signed by: Derrek Viramontes M.D. 09/09/2021 9:08 PM [facility] Preliminary Findings Only See Final Report For Complete Findings ADDENDUM - Added by Christine Campbell MD on 09/10/2021 3:24 AM (-08:00) Please note the prior comparison from 09/09/2021 was made available. The subdural hematoma along the falx is stable. CT HEAD: 2-3 mm subdural hematoma along the falx. No mass-effect or midline shift. No evidence of acute infarct. Mild periventricular white matter hypodensities are most consistent with chronic micro-angiopathy. The visualized paranasal sinuses and mastoid air cells are clear. No fracture. Radiologist: Christine Campbell MD Study ready at 02:00 and initial results transmitted at 03:10 Communications: Clear Time Type Notes 09/10/21 03:18 Call Doctor Regarding Tra miriam, called Dr. Castellano on 09/10 03:17 (- 05:00) ----- Preliminary Findings Only See Final Report For Complete Findings CT ABDOMEN & PELVIS Without Contrast: The solid organs are within normal limits. No obstruction. No fracture. No acute finding. Radiologist: Christine Campbell MD Study ready at 01:58 and initial results transmitted at 03:25 --- Preliminary Findings Only See Final Report For Complete Findings CT CHEST Without Contrast: The lungs are clear. Heart size is normal. No pathologically enlarged lymph nodes. No aortic aneurysm. Nonspecific soft tissue nodules of the posterior back subcutaneous fat, clinical correlation is recommended. Radiologist: Christine Campbell MD Study ready at 01:55 and initial results transmitted at 03:22 -- Preliminary Findings Only See Final Report For Complete Findings CT C SPINE: No fracture or malalignment. No prevertebral soft tissue swelling. There are degenerative changes of the spine. Radiologist: Christine Campbell MD Study ready at 02:00 and initial results transmitted at 04:04 Discharge Plan Visit Data Chief Complaint: Fall Stated Complaint: FALL, WANTS PLACEMENT ED Provider: Peter Castellano Discharge Problem: Frequent falls, Parkinsons disease, Intermittent confusion, Dementia, Subdural hematoma Forms Stand Alone Forms: [facility] [employer] Prescriptions Prescriptions: No Action doxycycline hyclate 100 mg capsule 100 mg PO BID RF: 0 carbidopa-levodopa 25-100 mg tablet extended release See Rx Instructions .ROUTE .COMPLEX RF: 0 Referrals Referrals: PCP,NO [Primary Care Provider] -
--- NOTE | 2021-09-10 03:48 | History & Physical Report ---
Date of Service September 10, 2021 Assessment & Plan (1) Traumatic subdural hematoma: Plan: Traumatic subdural hematoma, stable on repeat CT of head 5 h apart/acute injury status post recurrent falls Repeat CT in 24 h Initial trauma to head was about 2 weeks ago and was assessed at [facility] emergency department Neurochecks Avoid antiplatelet agents and anticoagulants No aggressive intervention per son, POA Neurology consult (2) Acute head injury: Plan: Acute head injury/history of recurrent falls- As above (3) Frequent falls: Plan: In addition to above consult, will consult PT/OT once stable (4) Atrial flutter with controlled response: Plan: EKG with atrial flutter at rate 89 The patient will be admitted to telemetry for serial cardiac enzymes, serial EKG's, cardiac rhythm monitoring and a 2-D echocardiogram with Dopplers. Not a candidate for anticoagulation due to subdural hematoma (5) Parkinsons disease: Plan: Continue carbidopa/levodopa History of Present Illness Chief Complaint: The patient is brought to the emergency department by EMS due to concerns of his son regarding persistent worsening weakness and confusion over the past several weeks, with increasing frequency of falls. The patient had been seen in [facility] emergency department 2 weeks ago after falling and hitting his head, and had keith placed in his scalp. He was started on doxycycline by his PCP recently, due to concerns regarding possible reinfection with Lyme disease, without any improvement in weakness and confusion. Primary Care Provider: NO PCP The patient is an 86-year-old male with a past medical history including [place] son's disease, dementia, Lyme disease, atrial fibrillation, visual hallucinations and frequent falls. Patient presents to the emergency department as noted above. Initial CT scan of head this evening showed a 2 mm interhemispheric subdural hematoma, with recommendation for repeat CT in [address] in 5 h showed a stable subdural hematoma along the falx. The patient's son was comfortable with him being admitted to [facility], and did not want any aggressive intervention performed on the patient Allergies Allergy/AdvReac Type Severity Reaction Status Date / Time No Known Allergies Allergy Verified 09/09/21 20:31 Home Medications Medication Instructions Recorded Confirmed Type carbidopa ER 25 mg-levodopa 100 mg See Rx Instructions .ROUTE .COMPLEX 09/09/21 09/09/21 History tablet,extended release doxycycline hyclate 100 mg capsule 100 mg PO BID 09/09/21 09/09/21 History Past Med/Surg History Medical History Atrial fibrillation Frequent falls Hallucination, visual Parkinsons disease Surgical History No significant past surgical history Family History Other No significant family history Social History Smoking Status: Never smoker Tobacco Type: Cigarettes Hx Alcohol Use: No Hx Substance Use: No Preferred Language: Lao Communication Ability: Effective Stock Mixer Required: No Beliefs That Will Affect Care: None Current Living Situation: Family Current Living Situation Comment: lives with son Evangelist Feels Safe at Home: Yes Assistive Devices: Walker Review of Systems Review of Systems: Unobtainable due to cognitive status History and ROS was obtained from son as noted above Physical Exam Physical Exam: The patient is awake, disoriented and confused, laughs when asked any questions, and atraumatic, lying in bed and in no acute distress. HEENT--PERRL, EOMI, mucous membranes and oropharynx dry. Neck--supple. No JVD. No bruits. Thyroid normal, trachea midline, no adenopathy. Heart--normal S1 and S2. No murmurs, rubs or gallops. Lungs--clear bilaterally, no respiratory distress, no accessory muscle use. Abdomen--normal bowel sounds and soft. Nontender. Nondistended, no hernias or masses, no organomegaly. Extremities--no cyanosis or clubbing. No edema. Dermatologic--skin is mildly dry Neurologic--cranial nerves II through XII grossly intact. Rheumatologic--limited exam Psychiatric--confused and disoriented. Results & Data Results & Data ([facility]) Vital Signs (Past 12 Hours) Vital Signs Pulse Resp BP Pulse Ox 09/10/21 03:00 100 H 23 140/87 09/10/21 02:01 101 H 26 H 145/64 H 97 09/10/21 01:28 110 H 122/96 99 09/09/21 23:44 95 H 21 140/88 97 09/09/21 21:00 101 H 20 152/95 H 94 Laboratory Results Laboratory Results WBC 9.28 K/uL (4.8-10.8) 09/09/21 17:21 RBC 4.55 M/uL (4.7-6.1) L 09/09/21 17:21 Hgb 13.5 g/dL (14.0-18.0) L 09/09/21 17:21 Hct 41.7 % (42-52) L 09/09/21 17:21 MCV 91.6 fL (80-100) 09/09/21 17:21 MCH 29.7 pg (25-34) 09/09/21 17:21 MCHC 32.4 g/dL (32-36) 09/09/21 17:21 RDW Std Deviation 47.5 fL (36.4-46.3) H 09/09/21 17:21 RDW Coeff of Shira 14.1 % (11.5-14.5) 09/09/21 17:21 Plt Count 374 K/uL (130-400) 09/09/21 17:21 MPV 9.3 fL (7.4-10.4) 09/09/21 17:21 Immature Gran % (Auto) 0.2 % 09/09/21 17:21 Neut % (Auto) 76.1 % 09/09/21 17:21 Lymph % (Auto) 12.1 % 09/09/21 17:21 [place] % (Auto) 9.6 % 09/09/21 17:21 Eos % (Auto) 1.6 % 09/09/21 17:21 Baso % (Auto) 0.4 % 09/09/21 17:21 Neut # (Auto) 7.06 K/uL (1.4-6.5) H 09/09/21 17:21 Lymph # (Auto) 1.12 K/uL (1.2-3.4) L 09/09/21 17:21 [place] # (Auto) 0.89 K/uL (0.11-0.59) H 09/09/21 17:21 Eos # (Auto) 0.15 K/uL (0-0.5) 09/09/21 17:21 Baso # (Auto) 0.04 K/uL (0-0.2) 12/30/21 17:21 Immature Gran # (Auto) 0.02 K/uL (0.00-0.02) 09/09/21 17:21 Sodium 138 mmol/L (136-145) 09/09/21 17:21 Potassium 3.7 mmol/L (3.5-5.1) 09/09/21 17:21 Chloride 105 mmol/L (98-107) 09/09/21 17:21 Carbon Dioxide 29 mmol/L (21-32) 09/09/21 17:21 Anion Gap 4.0 (3-11) 09/09/21 17:21 BUN 18 mg/dl (7-18) 09/09/21 17:21 Creatinine 1.15 mg/dl (0.6-1.4) 09/09/21 17:21 Est Cr Clr Drug Dosing Not Reportable 09/09/21 17:21 Est GFR ( Amer) 66.9 ml/min 09/09/21 17: Est GFR (Non-Af Amer) 57.7 ml/min 09/09/21 17:21 BUN/Creatinine Ratio 15.2 (10-20) 09/09/21 17:21 Glucose 105 mg/dl (70-99) H 09/09/21 17:21 POC Glucose 111 mg/dl (70-99) H 09/09/21 23:54 Calcium 9.7 mg/dl (8.5-10.1) 09/09/21 17:21 Magnesium 2.5 mg/dl (1.8-2.4) H 09/09/21 17:21 Total Bilirubin 1.1 mg/dl (0.2-1) H 09/09/21 17:21 AST 12 U/L (15-37) L 09/09/21 17:21 ALT 8 (12-78) L 09/09/21 17:21 Alkaline Phosphatase 130 U/L (45-117) H 09/09/21 17:21 Total Protein 8.1 gm/dl (6.4-8.2) 09/09/21 17:21 Albumin 4.1 gm/dl (3.4-5.0) 09/09/21 17:21 Globulin 4.0 gm/dl (2.5-4.0) 09/09/21 17:21 Albumin/Globulin Ratio 1.0 (0.9-2) 09/09/21 17:21 Urine Color Dark Yellow 09/09/21 17:16 Urine Appearance Clear (Clear) 09/09/21 17:16 Urine pH 5.0 (4.5-7.5) 09/09/21 17:16 Ur Specific [place] 1.026 (1.000-1.030) 09/09/21 17:16 Urine Protein Trace (Negative) H 09/09/21 17:16 Urine Glucose (UA) Negative (Negative) 09/09/21 17:16 Urine Ketones Trace (Negative) H 09/09/21 17:16 Urine Blood Negative (Negative) 09/09/21 17:16 Urine Nitrite Negative (Negative) 09/09/21 17:16 Urine Bilirubin Negative (Negative) 09/09/21 17:16 Urine Urobilinogen Negative (Negative) 09/09/21 17:16 Ur Leukocyte Esterase Negative (Negative) 09/09/21 17:16 Urine WBC (Auto) 5-10 /hpf (0-5) H 09/09/21 17:16 Urine RBC (Auto) 10-30 /hpf (0-4) H 09/09/21 17:16 U Hyaline Cast (Auto) 5-10 /lpf (0-5) H 09/09/21 17:16 U Epithel Cells (Auto) >30 /lpf (0-5) H 09/09/21 17:16 Urine Bacteria (Auto) Negative (Negative) 09/09/21 17:16 SARS-CoV-2, RNA, NAAT NEGATIVE (NEGATIVE) 09/09/21 17:19 Impressions Chest X-Ray 09/09/21 16:32 XR chest 1V portable CLINICAL HISTORY: weakness. Evaluate cardiopulmonary status COMPARISON STUDY: 07/30/2020 TECHNIQUE: 1 view of the chest FINDINGS: Single frontal view of the chest demonstrates the cardiomediastinal silhouette to be within normal limits. The lungs are clear of alveolar opacities. Evidence for calcifications is again seen at the right lung base and superimposed over the liver. These may be pleural-based. They are unchanged. There is no evidence for pleural effusion. There is no evidence for vascular congestion. There is no acute osseous pathology. IMPRESSION: No acute cardiopulmonary disease. ACT 112: Negative or not required by law. Electronically signed by: Juan Strickland M.D. 09/09/2021 4:57 PM Diagnostic Findings [place], [place] [phone] CT Scan Report Patient:GIACOMO CLOUD Admit Date:09/09/21 MR#:[id number] Address1:[address] [place] [address] Acct ID:[id number] Address2: Date:[address] [facility] Zip:[place] [address] Age:86 Location:ED Sex:M Room/Bed: Att Phy: Diagnosis:FALL, WANTS PLACEMENT Cassidy Phy:PCP,NO Service Date:09/09/21 [facility] Phy: Interpreting Phy:Derrek Viramontes MDAdmit Phy: Ordering Phy:Peter Castellano M.D. cc: ~ HEAD CT NONCONTRAST CT DOSE: 537.48 mGy.cm HISTORY: confusion, fall TECHNIQUE: Multiaxial CT images of the head were performed without the use of intravenous contrast. Automated exposure control was utilized for this study. A dose lowering technique was utilized adhering to the principles of ALARA. Comparison: Head CT 08/02/2020. Findings: The paranasal sinuses and mastoid air cells are clear. The calvarium and skull base are intact. The ventricles and sulci demonstrate mild age-related involutional changes. There is no mass, midline shift, or acute infarct. Periventricular white matter hypodensity favors microvascular ischemic change. This remains unchanged. There is a trace interhemispheric subdural hematoma measuring up to 2 mm in thickness. Impression: Trace interhemispheric acute subdural hematoma measuring up to 2 mm in thickness. Follow-up head CT in 6 to 12 hours recommended to ensure stability. ACT 112: Negative or not required by law. Electronically signed by: Derrek Viramontes M.D. 09/09/2021 9:08 PM Dictated:09/09/212103 Transcribed: 09/09/212103 [facility] Patient: GIACOMO CLOUD (Male) : 37 Status: ER Date: 09/10/21 01:45 Room #: History: fall Slices: 67 Priors: Tech: Billy Last @ [phone] Exams: CT HEAD Contrast: Accession Numbers: [id number] Referring Physician: REFERRED SELF Preliminary Findings Only See Final Report For Complete Findings ADDENDUM - Added by Christine Campbell MD on 09/10/2021 3:24 AM (-08:00) Please note the prior comparison from 09/09/2021 was made available. The subdural hematoma along the falx is stable. CT HEAD: 2-3 mm subdural hematoma along the falx. No mass-effect or midline shift. No evidence of acute infarct. Mild periventricular white matter hypodensities are most consistent with chronic micro-angiopathy. The visualized paranasal sinuses and mastoid air cells are clear. No fracture. Radiologist: Christine Campbell MD Study ready at 02:00 and initial results transmitted at 03:10 Communications: Clear Time Type Notes 09/10/21 03:18 Call Doctor Letitia pineda, called Dr. Castellano on 09/10 03:17 (- 05:00) *This report constitutes a preliminary interpretation only. Non-acute findings felt to be unrelated to the clinical presentation may not be discussed in this report. The study will be interpreted and a final report will be generated by the local Radiologist the following shift. To reach the [facility] radiology department call [phone]. If a discrepancy is found between the preliminary and final interpretations of this study, please notify us via our Client Portal at [email or web address], under QA Exams. You can also fax this report with a description of the discrepancy, or include the final report, to our daytime fax number [phone]. If faxing, please indicate the severity of discrepancy using one of the following categories: [ ] 1 - Agree/Informational [ ] 2 - Unlikely to Affect Management [ ] 3 - Possible Eventual Change of Management [ ] 4 - Probable Immediate Change of Management For all other patient related information, please fax us at [phone]. [id number] [facility] Patient: GIACOMO CLOUD (Male) : 37 Status: ER Date: 09/10/21 01:45 Room #: History: fall pt unable to straighten neck any farther Slices: 842 Priors: Tech: Billy Last @ [phone] Exams: CT C SPINE Contrast: Accession Numbers: [id number] Referring Physician: REFERRED SELF Preliminary Findings Only See Final Report For Complete Findings CT C SPINE: No fracture or malalignment. No prevertebral soft tissue swelling. There are degenerative changes of the spine. Radiologist: Christine Campbell MD Study ready at 02:00 and initial results transmitted at 04:04 *This report constitutes a preliminary interpretation only. Non-acute findings felt to be unrelated to the clinical presentation may not be discussed in this report. The study will be interpreted and a final report will be generated by the local Radiologist the following shift. To reach the [facility] radiology department call [phone]. If a discrepancy is found between the preliminary and final interpretations of this study, please notify us via our Client Portal at [email or web address], under QA Exams. You can also fax this report with a description of the discrepancy, or include the final report, to our daytime fax number [phone]. If faxing, please indicate the severity of discrepancy using one of the following categories: [ ] 1 - Agree/Informational [ ] 2 - Unlikely to Affect Management [ ] 3 - Possible Eventual Change of Management [ ] 4 - Probable Immediate Change of Management For all other patient related information, please fax us at [phone]. [id number] [facility] Patient: GIACOMO CLOUD (Male) : 37 Status: ER Date: 09/10/21 01:46 Room #: History: fall pt hx parkinsons unable to raisew arms or follow breatghing instruction appen pres per pt Slices: 768 Priors: Tech: Billy Last @ [phone] Exams: CT ABDOMEN & PELVIS Without Contrast Contrast: Accession Numbers: [id number] Referring Physician: REFERRED SELF Preliminary Findings Only See Final Report For Complete Findings CT ABDOMEN & PELVIS Without Contrast: The solid organs are within normal limits. No obstruction. No fracture. No acute finding. Radiologist: Christine Campbell MD Study ready at 01:58 and initial results transmitted at 03:25 *This report constitutes a preliminary interpretation only. Non-acute findings felt to be unrelated to the clinical presentation may not be discussed in this report. The study will be interpreted and a final report will be generated by the local Radiologist the following shift. To reach the [facility] radiology department call [phone]. If a discrepancy is found between the preliminary and final interpretations of this study, please notify us via our Client Portal at [email or web address], under QA Exams. You can also fax this report with a description of the discrepancy, or include the final report, to our daytime fax number [phone]. If faxing, please indicate the severity of discrepancy using one of the following categories: [ ] 1 - Agree/Informational [ ] 2 - Unlikely to Affect Management [ ] 3 - Possible Eventual Change of Management [ ] 4 - Probable Immediate Change of Management For all other patient related information, please fax us at [phone]. [id number] [facility] Patient: GIACOMO CLOUD (Male) : 37 Status: ER Date: 09/10/21 01:47 Room #: History: fall pt hx parkinsons unable to raisew arms or follow breatghing instruction appen pres per pt Slices: 594 Priors: Tech: Billy Last @ [phone] Exams: CT CHEST Without Contrast Contrast: Accession Numbers: [id number] Referring Physician: REFERRED SELF Preliminary Findings Only See Final Report For Complete Findings CT CHEST Without Contrast: The lungs are clear. Heart size is normal. No pathologically enlarged lymph nodes. No aortic aneurysm. Nonspecific soft tissue nodules of the posterior back subcutaneous fat, clinical correlation is recommended. Radiologist: Christine Campbell MD Study ready at 01:55 and initial results transmitted at 03:22 *This report constitutes a preliminary interpretation only. Non-acute findings felt to be unrelated to the clinical presentation may not be discussed in this report. The study will be interpreted and a final report will be generated by the local Radiologist the following shift. To reach the hospital radiology department call [phone]. If a discrepancy is found between the preliminary and final interpretations of this study, please notify us via our Client Portal at [email or web address], under QA Exams. You can also fax this re port with a description of the discrepancy, or include the final report, to our daytime fax number [phone]. If faxing, please indicate the severity of discrepancy using one of the following categories: [ ] 1 - Agree/Informational [ ] 2 - Unlikely to Affect Management [ ] 3 - Possible Eventual Change of Management [ ] 4 - Probable Immediate Change of Management For all other patient related information, please fax us at [phone]. [id number] Code Status & VTE Plan Code Status DNR/DNI VTE Prophylaxis Plan VTE Prophylaxis will be ordered: Yes PG Care Time/CCT Total # of Minutes Spent Total Time Spent with Patient: Total time spent is greater than 50% in coordination of care (as documented) at patient's floor/unit and/or counseling patient: Coding Level of Care Code 87528 Initial Inpt Care Lvl 3 Diagnoses Frequent falls R29.6 Acute head injury S09.90XA Encounter type: initial encounter Parkinsons disease G20 Atrial flutter with controlled response I48.92 Traumatic subdural hematoma S06.5X9A (1) Acute head injury Encounter type: initial encounter Qualified Code(s): S09.90XA - Unspecified injury of head, initial encounter
[2021-09-10] MEDS ORDERED: ACETAMINOPHEN 325 MG TAB PO PRN (05:50)
[2021-09-10] MEDS ORDERED: ONDANSETRON INJ 2 MG/ML 2 ML VIAL IV PRN (05:50)
[2021-09-10] MEDS: CARBIDOPA/LEVODOPA 25/100MG EXT REL TAB PO SCH ×4 (06:37→20:37)
--- NOTE | 2021-09-10 07:28 | CT Scan Report ---
CT head/brain wo con CLINICAL HISTORY: confusion, parkinsons, reeval possible subdural hematoma COMPARISON STUDY: 09/09/2021 at 8:52 PM and 08/02/2020 CT DOSE: TECHNIQUE: Standard CT of the Brain was performed without IV contrast. A dose lowering technique was utilized adhering to the principles of ALARA. FINDINGS: Extraaxial space: Compared to the previous study and more remote study, there is again evidence for a very small subdural hematoma along the interhemispheric fissure/falx. It again measures approximatel y 2 mm and is unchanged. There are no extra-axial fluid collections. Ventricles and cisterns: The ventricles are mildly dilated bilaterally. There is no evidence for mid line shift or mass effect. Parenchyma: There is no subarachnoid or intraparenchymal hemorrhage. There is no evidence for an acu te infarct or cerebral edema. There is mild cerebral cortical atrophy and decreased attenuation in th e periventricular white matter representing remote small vessel disease. There are no gross mass lesi ons. Osseous structures: There is no evidence for an acute fracture. The visualized paranasal sinuses are clear. The mastoid air cells are clear bilaterally. Soft tissues: There is no evidence for focal soft tissue swelling. IMPRESSION: Compared to the previous examination, there is essentially no change in previously identi fied very small subdural hematoma along the interhemispheric fissure/falx. No new hemorrhage is ident ified. There is again cerebral cortical atrophy and remote small vessel disease. ACT 112: Negative or not required by law. Electronically signed by: Juan Strickland M.D. 09/10/2021 7:26 AM
--- NOTE | 2021-09-10 07:56 | CT Scan Report ---
CT cervical spine wo con CLINICAL HISTORY: Status post fall with neck pain COMPARISON STUDY: 07/30/2020 CT DOSE: 1725.87 mGy.cm TECHNIQUE: Standard CT of the Cervical Spine was performed without IV contrast. A dose lowering te chnique was utilized adhering to the principles of ALARA. FINDINGS: Bones: Bones are osteopenic. Compared to the previous examination, there is again anterolisthesis of C3 on C4 by approximately 4 mm. This is unchanged. There is also reversal of the cervical lordosis, a gain unchanged related to degenerative change. There is a torticollis also present concave to the lef t. This is also unchanged. There is no evidence for acute fracture. The heights of the vertebral bodi es are maintained. The vertebral bodies are in anatomic alignment. The odontoid is intact. Degenerati ve changes are seen at the atlantoaxial articulation. Disc spaces:Moderate disc space narrowing is again seen from C4 through T1 with endplate sclerosis an d osteophyte formation. Apophyseal joints:Degenerative apophyseal disease is also again seen bilaterally, left greater than r ight. Soft tissues:The prevertebral soft tissues are within normal limits. IMPRESSION: Osteopenia with no acute abnormality. 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 ACT 112: Negative or not required by law. Electronically signed by: Juna Strickland M.D. 09/10/2021 7:55 AM
--- NOTE | 2021-09-10 07:59 | CT Scan Report ---
CT OF THE CHEST WITHOUT IV CONTRAST CLINICAL HISTORY: Chest pain following fall. COMPARISON STUDY: Chest radiographs July 30, 2020 and September 09, 2021. TECHNIQUE: Axial images of the chest were obtained without IV contrast. Images were reviewed in the axial, sagittal, and coronal planes. IV contrast was not administered for this examination. Automat ed exposure control was utilized for the study. A dose lowering technique was utilized adhering to t he principles of ALARA. FINDINGS: Thoracic aorta is suboptimally assessed on this unenhanced exam but there is no mediastina l hematoma. Cardiomegaly is noted. There is no pericardial effusion. No enlarged thoracic lymph nodes are noted. No pneumothorax or pleural effusion is noted. Several right lung nodules measure up to 5 mm. The largest nodules along the right minor fissure. This is probably benign. No pulmonary contusio n is present. Subpleural opacities favor atelectasis. There is mild upper lobe predominant emphysema. Note is made of an acute minimally displaced fracture of the posterior left ninth and 10th ribs as w ell as the lateral left eighth rib. Multiple additional old bilateral rib fractures are present. Ther e is no thoracic lymphadenopathy. Note is made of multiple confluent partially calcified nodules with in the subcutaneous tissues of the right back. These extend for 11 cm in the craniocaudal dimension. Abdomen and pelvis will be reported separately. IMPRESSION: 1. Acute minimally displaced fractures of the left eighth, ninth and 10th ribs. No pneumothorax. This finding will be called/faxed to the floor at time of dictation. 2. Multiple confluent partially calcified subcutaneous masses/nodules of the right lower back, as mendez cribed above. These are pathologically indeterminate although a benign etiology is favored. Clinical follow up to ensure stability is recommended. A chest CT could also be obtained in 6 months. ACT 112: Negative or not required by law. Electronically signed by: Medardo De Paz M.D. 09/10/2021 7:58 AM
--- NOTE | 2021-09-10 08:34 | CT Scan Report ---
CT OF THE ABDOMEN AND PELVIS WITHOUT CONTRAST CLINICAL HISTORY: Abdominal pain following fall. COMPARISON STUDY: No previous studies for comparison. TECHNIQUE: Axial images of the abdomen and pelvis were obtained without IV contrast. Images were revi ewed in the axial, sagittal, and coronal planes. Automated exposure control was utilized for the tiffany dy. A dose lowering technique was utilized adhering to the principles of ALARA. FINDINGS: Please note that the chest CT will be reported separately. Multiple partially calcified con fluent nodules of the subcutaneous tissues of the right lower back are described on that exam. Acute appearing minimally displaced fractures of the left eighth, ninth and 10th ribs are depicted on that exam as well. No hemoperitoneum or pneumoperitoneum is present. Evaluation of the solid abdominal vis cera is suboptimal on this unenhanced exam. However, there is no evidence for traumatic injury to the liver, spleen, adrenal glands, kidneys or pancreas. Right-sided parapelvic cyst is noted. Additional low-attenuation bilateral renal lesions are suboptimally assessed on this exam but favor cysts. Ther e are gallstones within the gallbladder. There is no evidence for a bowel obstruction. There is a mod erate amount stool within the colon and rectum. No free fluid is present. There are possible tiny sto jose within the bladder. There is no hydronephrosis. No acute lumbar spine or pelvic fracture is ident ified. IMPRESSION: 1. No acute traumatic findings within the abdomen or pelvis on unenhanced exam. 2. Moderate amount stool within the colon and rectum. No bowel obstruction. 3. Cholelithiasis. ACT 112: Negative or not required by law. Electronically signed by: Medardo De Paz M.D. 09/10/2021 8:33 AM
--- NOTE | 2021-09-10 18:54 | Hospitalist Progress Note ---
Date of Service September 10, 2021 Assessment & Plan (1) Traumatic subdural hematoma: Plan: Traumatic subdural hematoma, small but stable, son did not want to transfer to neurosurgery. Hold antiplatelet or anticoagulant. Anticipate the need for placement (2) Acute head injury: Plan: Acute head injury/history of recurrent falls- As above (3) Frequent falls: Plan: In addition to above consult, anticipate need for placement (4) Atrial flutter with controlled response: Plan: Rate controlled, obviously not a candidate for anticoagulation (5) Parkinsons disease: Plan: Continue carbidopa/levodopa Admission and Anticipated Discharge Date Admission Date: September 10, 2021 Subjective no HPI or ROS obtaianble. no new issues noted, however. Review of Systems Review of Systems: Unobtainable due to cognitive status Physical Exam Physical Exam: gen awake but nonverbal no apparent distress. Breathing unlabored no accessory muscle use good effort. Skin shows no rashes no pallor or icterus. Results & Data Results & Data ([facility]) Vital Signs (Past 12 Hours) Vital Signs Temp Pulse Resp BP Pulse Ox 09/10/21 15:00 98.4 F 94 H 18 158/75 H 91 09/10/21 11:00 97.5 F L 93 H 18 128/67 96 09/10/21 07:00 98.1 F 102 H 20 125/56 L 97 PG Care Time/CCT Total # of Minutes Spent Total Time Spent with Patient: Total time spent is greater than 50% in coordination of care (as documented) at patient's floor/unit and/or counseling patient: Coding Level of Care Code 58781 Subseq Hosp Care Lvl 1 Diagnoses Traumatic subdural hematoma S06.5X9A Acute head injury S09.90XA Encounter type: initial encounter Frequent falls R29.6 Atrial flutter with controlled response I48.92 Parkinsons disease G20 (1) Acute head injury Encounter type: initial encounter Qualified Code(s): S09.90XA - Unspecified injury of head, initial encounter
[2021-09-11] MEDS: CARBIDOPA/LEVODOPA 25/100MG EXT REL TAB PO SCH ×4 (07:04→17:56)
--- NOTE | 2021-09-11 10:12 | Electrocardiogram Report ---
Test Reason : Blood Pressure : / mmHG Vent. Rate : 089 BPM Atrial Rate : 082 BPM P-R Int : 000 ms QRS Dur : 082 ms QT Int : 350 ms P-R-T Axes : 000 -10 012 degrees QTc Int : 425 ms Poor data quality, interpretation may be adversely affected Atrial fibrillation Low voltage QRS Nonspecific ST abnormality Abnormal ECG When compared with ECG of 02-AUG-2020 11:39, No significant change was found Confirmed by Vishal Navarro ([id number]) on 09/11/2021 10:11:34 AM Referred By: REFERRED SELF Confirmed By:Vishal Navarro
--- NOTE | 2021-09-11 19:36 | Hospitalist Progress Note ---
Date of Service September 11, 2021 Assessment & Plan (1) Traumatic subdural hematoma: Plan: Traumatic subdural hematoma, small but stable, son did not want to transfer to neurosurgery. Hold antiplatelet or anticoagulant. Anticipate the need for placement but he doesn't want this. asked him to talk w son. for now PT/OT eval and treat. (2) Acute head injury: Plan: Acute head injury/history of recurrent falls- As above (3) Frequent falls: Plan: In addition to above consult, anticipate need for placement (4) Atrial flutter with controlled response: Plan: Rate overall controlled, obviously not a candidate for anticoagulation (5) Parkinsons disease: Plan: Continue carbidopa/levodopa Plan: dispo - should go to rehab wants to go home, will need family to weigh in as well as follow w PT/OT Admission and Anticipated Discharge Date Admission Date: September 10, 2021 Subjective awake and alert now. notes that he wants to go home. relates that he's here because he has parkinsons. discussed rehab - he notes that he doesn't want to go to rehab. discussed fall risk and very real consequences as he is here w intracranial bleeding -- he notes "i'm 86 years old, i don't give a fuck" Review of Systems Review of Systems: All systems reviewed & are unremarkable except as noted in HPI & below Physical Exam Physical Exam: gen awake, seems oriented, nad. slow to respond fitting with parkinsons. heent nc at mmm breathing unlabored no accessory muscles good effort skin no rashes no pallor or icterus neuro w parkinsons findings but no focal deficits Results & Data Results & Data ([facility]) Vital Signs (Past 12 Hours) Vital Signs Temp Pulse Resp BP Pulse Ox 09/11/21 16:10 97.5 F L 97 H 20 121/73 95 09/11/21 08:04 99.0 F 78 16 125/77 91 PG Care Time/CCT Total # of Minutes Spent Total Time Spent with Patient: Total time spent is greater than 50% in coordination of care (as documented) at patient's floor/unit and/or counseling patient: Coding Level of Care Code 22689 Subseq Hosp Care Lvl 2 Diagnoses Traumatic subdural hematoma S06.5X9A Acute head injury S09.90XA Encounter type: initial encounter Frequent falls R29.6 Atrial flutter with controlled response I48.92 Parkinsons disease G20 (1) Acute head injury Encounter type: initial encounter Qualified Code(s): S09.90XA - Unspecified injury of head, initial encounter
[2021-09-12] MEDS: CARBIDOPA/LEVODOPA 25/100MG EXT REL TAB PO SCH ×4 (07:04→18:01)
--- NOTE | 2021-09-12 19:32 | Hospitalist Progress Note ---
Date of Service September 12, 2021 Assessment & Plan (1) Traumatic subdural hematoma: Plan: Traumatic subdural hematoma, small but stable, son did not want to transfer to neurosurgery. Holding antiplatelet or anticoagulant. Anticipate the need for placement but he doesn't want this when i last talk to him - but then sounds like sons may have convinced him. stable for rehab when avaialbe. PT/OT eval and treat (2) Acute head injury: Plan: Acute head injury/history of recurrent falls- As above, stable (3) Frequent falls: Plan: In addition to above consult, anticipate need for placement/rehab - stable when available (4) Atrial flutter with controlled response: Plan: Rate overall controlled, obviously not a candidate for anticoagulation with fall and head bleed (5) Parkinsons disease: Plan: Continue carbidopa/levodopa Plan: dispo - anticipate rehab/subacute rehab once available Admission and Anticipated Discharge Date Admission Date: September 10, 2021 Subjective feeling ok. wants to go home. d/w son ana - notes they definitely want hm to go to rehab. saw pt in AM called ana later in the day - he notes that he's pretty sure sara talked him into rehab Review of Systems Review of Systems: All systems reviewed & are unremarkable except as noted in HPI & below Physical Exam Physical Exam: aao pleasant weak nad. parksinons tremor and bradykinesia, slow to respond. breathing unlabored no accessory muscles good effort skin no rashes no pallor or icterus Results & Data Results & Data ([facility]) Vital Signs (Past 12 Hours) Vital Signs Temp Pulse Resp BP Pulse Ox 09/12/21 15:43 97.9 F 63 16 131/72 95 PG Care Time/CCT Total # of Minutes Spent Total Time Spent with Patient: Total time spent is greater than 50% in coordination of care (as documented) at patient's floor/unit and/or counseling patient: Coding Level of Care Code 10887 Subseq Hosp Care Lvl 2 Diagnoses Traumatic subdural hematoma S06.5X9A Acute head injury S09.90XA Encounter type: initial encounter Frequent falls R29.6 Atrial flutter with controlled response I48.92 Parkinsons disease G20 (1) Acute head injury Encounter type: initial encounter Qualified Code(s): S09.90XA - Unspecified injury of head, initial encounter
[2021-09-13] MEDS: CARBIDOPA/LEVODOPA 25/100MG EXT REL TAB PO SCH ×4 (06:02→18:15)
--- NOTE | 2021-09-13 10:02 | Hospitalist Progress Note ---
Date of Service September 13, 2021 Assessment & Plan (1) Frequent falls: Plan: Gait disturbance, frequent falls. SDH, multiple left rib fractures. Seems to be asymptomatic. Denies chest pain. Need PT/OT. Placement discussions on going. (2) Traumatic subdural hematoma: Plan: No apparent sequelae. Son did not want to transfer to neurosurgery. Hold antiplatelet or anticoagulant. (3) Left rib fracture: Plan: Denies pain, shortness of breath. Follow (4) Delirium due to general medical condition: Plan: Intermittent. 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 Knows that he is in the hospital after falling and injuring, "my head". Denies headache, head pain. Wants to go home, but I think that he realizes he need strengthening. Review of Systems Review of Systems: Denies chills No cough or shortness of breath no chest pain No abdominal pain Denies joint pain Physical Exam Physical Exam: General: not distressed Lungs: poor effort. No rhonchi Heart: Irreg. rate ~60s Abd: soft. nontender Ext:resting tremor Results & Data Results & Data ([facility]) Vital Signs (Past 12 Hours) Vital Signs Temp Pulse Resp BP Pulse Ox 09/13/21 07:05 98.2 F 74 16 125/73 95 09/12/21 23:49 98.2 F 72 16 130/78 96 PG Care Time/CCT Total # of Minutes Spent Total Time Spent with Patient: Total time spent is greater than 50% in coordination of care (as documented) at patient's floor/unit and/or counseling patient: Coding Level of Care Code 21115 Subseq Hosp Care Lvl 3 Diagnoses Frequent falls R29.6 Traumatic subdural hematoma S06.5X9A Left rib fracture S22.32XA Delirium due to general medical condition F05 Parkinsons disease G20
[2021-09-14] MEDS: CARBIDOPA/LEVODOPA 25/100MG EXT REL TAB PO SCH ×4 (05:40→18:08)
--- NOTE | 2021-09-14 06:11 | Hospitalist Progress Note ---
Date of Service September 14, 2021 Assessment & Plan (1) Acute head injury: (2) Traumatic subdural hematoma: (3) Frequent falls: (4) Left rib fracture: (5) Delirium due to general medical condition: (6) Parkinsons disease: (7) Atrial fibrillation: Plan: 1. Presently stable. Seems to be asymptomatic from subdural and multiple rib fractures. Son did not want to transfer to neurosurgery. Holding antiplatelet or anticoagulant. Suspect underlying cognitive impairment due to Parkinson's, cerebral degenerative disease. Requires elevated level of care. Doubt that he can be cared for at home. 2. Patient has longstanding diagnosis of Parkinson's disease. He does not follow routinely with Neurology - last seen as outpatient in 2012. At last hospitalization 07/2021, evaluated by Neurology.Can consider starting pimavanserin 34mg daily for visual hallucinations (this will need to be done as an outpatient) He is currently on Carbidopa-Levodopa. Son "Kunal" is POA and supportive of placement an [facility] 3. Atrial fibrillation is controlled without AV alvarez blocking agents. Not a candidate for anticoagulation due to recurrent falling. Laboratory work reviewed. Analysis incorporated into the assessment and plan. Admission and Anticipated Discharge Date Admission Date: September 10, 2021 Subjective Admitted 09/10/2021 with recurrent falls, small subdural hematoma, confusion. This has been stable since. No new problems overnight. Ambulates with walker with standby assistance. Denies pain. Eating well. Intermittently incontinent of stool and urine. Review of Systems Review of Systems: GENERAL: Fatigue HEENT: No headaches Respiratory: No cough, shortness of breath Cardiovascular: No chest pain, palpitations GI: No nausea, denies abdominal pain. MSK: No unusual myalgias or arthralgias. No unusual weakness NEUROLOGY: No focal neurological signs or symptoms. Psychiatric: denies depression Physical Exam Physical Exam: In general: Elderly. Not distressed Skin: No obvious rash. Eyes: Anicteric. Respiratory: essentially clear but poor effort Cardiovascular: irregular. Lower extremities: No edema. Abdomen: Soft, good bowel sounds. No appreciable hepatosplenomegaly masses or tenderness Neuro exam: Resting tremor. Psychiatric: Alert. Results & Data Results & Data ([facility]) Vital Signs (Past 12 Hours) Vital Signs Temp Pulse Resp BP Pulse Ox 09/13/21 22:16 98.8 F 59 L 18 132/74 98 PG Care Time/CCT Total # of Minutes Spent Total Time Spent with Patient: Total time spent is greater than 50% in coordination of care (as documented) at patient's floor/unit and/or counseling patient: Coding Level of Care Code 65382 Subseq Hosp Care Lvl 2 Diagnoses Acute head injury S09.90XA Encounter type: initial encounter Traumatic subdural hematoma S06.5X9A Frequent falls R29.6 Left rib fracture S22.32XA Delirium due to general medical condition F05 Parkinsons disease G20 Atrial fibrillation I48.91 (1) Acute head injury Encounter type: initial encounter Qualified Code(s): S09.90XA - Unspecified injury of head, initial encounter
--- NOTE | 2021-09-14 08:36 | Hospitalist Progress Note ---
Date of Service September 14, 2021 Assessment & Plan Admission and Anticipated Discharge Date Admission Date: September 10, 2021 Subjective admitted 09/10/2021 with recurrent falls, small subdural hematoma, confusion. This has been stable since. No new problems overnight. Ambulates with walker with standby assistance. Denies pain. Eating well. Intermittently incontinent of stool and urine. Results & Data Results & Data ([facility]) Vital Signs (Past 12 Hours) Vital Signs Temp Pulse Pulse Resp BP BP Pulse Ox 09/14/21 07:02 97.5 F L 80 18 117/72 97 09/13/21 22:16 98.8 F 59 L 18 132/74 98 PG Care Time/CCT Total # of Minutes Spent Total Time Spent with Patient: Total time spent is greater than 50% in coordination of care (as documented) at patient's floor/unit and/or counseling patient: Coding
[2021-09-14 11:14] LABS: BUN Creatinine Ratio 24.3 (10-20); Calcium 9.3 mg/dl (8.5-10.1); Creatinine Clr Calc Pharmacy 47.6 ml/min; Est GFR (African American) 73.8 ml/min; Est GFR (Non-African American) 63.7 ml/min; Potassium 3.9 mmol/L (3.5-5.1)
[2021-09-15] MEDS: CARBIDOPA/LEVODOPA 25/100MG EXT REL TAB PO SCH ×4 (05:45→17:31)
--- NOTE | 2021-09-15 05:58 | Hospitalist Progress Note ---
Date of Service September 15, 2021 Assessment & Plan (1) Frequent falls: (2) Traumatic subdural hematoma: (3) Left rib fracture: (4) Delirium due to general medical condition: (5) Parkinsons disease: (6) Atrial fibrillation: Plan: 1. Chronic gait disturbance. Frequent falls. Seems to be asymptomatic from subdural and multiple rib fractures. Son did not want to transfer to neurosurgery. Holding antiplatelet or anticoagulant. Suspect underlying cognitive impairment due to Parkinson's, cerebral degenerative disease. Requires elevated level of care. Doubt that he can be cared for at home. Reviewed PT note from yesterday. Continue therapy 2 Parkinson's disease. He does not follow routinely with Neurology - last seen as outpatient in 2012. At last hospitalization 07/2021, evaluated by Neurology. He is currently on Carbidopa-Levodopa. Seems to be stable. 3. Atrial fibrillation is controlled without AV alvarez blocking agents. Not a candidate for anticoagulation due to recurrent falling. Admission and Anticipated Discharge Date Admission Date: September 10, 2021 Subjective Admitted 09/10/2021 with recurrent falls, small subdural hematoma, confusion. Suffered multiple left-sided rib fractures. Charted that son declined neuro surgical referral/ transfer. With conservative management he has returned to baseline. slept well. Denies headache, shortness of breath, chest pain. Alert and oriented Ambulating with walker, stand by assistance. He has longstanding Parkinson's disease. He does not follow routinely with Neurology - last seen as outpatient in 2012. At last hospitalization 07/2021, evaluated by Neurology.Can consider starting pimavanserin 34mg daily for visual hallucinations (this will need to be done as an outpatient) He is currently on Carbidopa-Levodopa. Undergoing physical/occupational evaluations. Requires elevated level of care. Doubt that he can be cared for at home. Review of Systems Review of Systems: GENERAL: Fatigue HEENT: No headaches Respiratory: No cough, shortness of breath Cardiovascular: No chest pain, palpitations GI: No nausea, denies abdominal pain. MSK: No unusual myalgias or arthralgias. No unusual weakness NEUROLOGY: No focal neurological signs or symptoms. Psychiatric: denies depression Physical Exam Physical Exam: In general: Elderly. Not distressed Skin: No obvious rash. Eyes: Anicteric. Respiratory: Essentially clear but poor effort Cardiovascular:irregular. Lower extremities: No edema. Abdomen: Soft, good bowel sounds. No appreciable hepatosplenomegaly masses or tenderness Neuro exam: Resting tremor. Flat affect Psychiatric: Alert. Results & Data Results & Data ([facility]) Vital Signs (Past 12 Hours) Vital Signs Temp Pulse Resp BP Pulse Ox 09/14/21 23:20 97.7 F 87 16 110/65 95 PG Care Time/CCT Total # of Minutes Spent Total Time Spent with Patient: Total time spent is greater than 50% in coordination of care (as documented) at patient's floor/unit and/or counseling patient: Coding Level of Care Code 87992 Subseq Hosp Care Lvl 3 Diagnoses Frequent falls R29.6 Traumatic subdural hematoma S06.5X9A Left rib fracture S22.32XA Delirium due to general medical condition F05 Parkinsons disease G20 Atrial fibrillation I48.91
[2021-09-16] MEDS: CARBIDOPA/LEVODOPA 25/100MG EXT REL TAB PO SCH ×4 (04:55→17:48)
--- NOTE | 2021-09-16 05:24 | Hospitalist Progress Note ---
Date of Service September 16, 2021 Assessment & Plan (1) Frequent falls: (2) Traumatic subdural hematoma: (3) Left rib fracture: (4) Parkinsons disease: (5) Atrial fibrillation: (6) Debilitated patient: Plan: Chronic gait disturbance. Frequent falls. Seems to be asymptomatic from subdural and multiple rib fractures. Son did not want to transfer to neurosurgery. Holding antiplatelet or anticoagulant. Suspect underlying cognitive impairment due to Parkinson's, cerebral degenerative disease. Requires elevated level of care. Reviewed Case management note from yesterday. Continue therapy. 2 Parkinson's disease. He does not follow routinely with Neurology - last seen as outpatient in 2012. At last hospitalization 07/2021, evaluated by Neurology. He is currently on Carbidopa-Levodopa. Seems to be stable. Continue same. 3. Atrial fibrillation is controlled without AV alvarez blocking agents. Not a candidate for anticoagulation due to recurrent falling. Admission and Anticipated Discharge Date Admission Date: September 10, 2021 Subjective (PCP Freddy Chaidez PA-C) Admitted 09/10/2021 with recurrent falls, small subdural hematoma, confusion. Suffered multiple left-sided rib fractures. Charted that son declined neuro surgical referral/ transfer. With conservative management he has returned to baseline. Slept well. Denies headache, shortness of breath, chest pain. Alert and oriented Ambulating with rolling walker, stand by assistance. Undergoing bedside PT. Note yesterday states some improvement. He has longstanding Parkinson's disease. He does not follow routinely with Neurology - last seen as outpatient in 2012. At last hospitalization 07/2021, evaluated by Neurology.Can consider starting pimavanserin 34mg daily for visual hallucinations (this will need to be done as an outpatient) He is currently on Carbidopa-Levodopa. Case management met with patient and son yesterday. Plan is for discharge to [facility]. He now agrees. He denies left-sided chest pain. No shortness of breath. Denies headaches. He has atrial fibrillation. On no anticoagulation due to recurrent falls. Rate remains controlled on no AV alvarez blocking agents. Review of Systems Review of Systems: Eating well without obvious aspiration. Physical Exam Physical Exam: In general: Elderly. Not distressed Skin: No obvious rash. Eyes: Anicteric. Respiratory: Essentially clear but poor effort Cardiovascular: irregular. Lower extremities: No edema. Abdomen: Soft, good bowel sounds. No appreciable hepatosplenomegaly masses or tenderness Neuro exam: Resting tremor. Flat affect Psychiatric: Alert. Results & Data Results & Data ([facility]) Vital Signs (Past 12 Hours) Vital Signs Temp Pulse Resp BP Pulse Ox 09/15/21 23:14 98.1 F 90 18 107/64 95 PG Care Time/CCT Total # of Minutes Spent Total Time Spent with Patient: Total time spent is greater than 50% in coordination of care (as documented) at patient's floor/unit and/or counseling patient: Coding Diagnoses Frequent falls R29.6 Traumatic subdural hematoma S06.5X9A Left rib fracture S22.32XA Parkinsons disease G20 Atrial fibrillation I48.91 Debilitated patient R53.81
[2021-09-17] MEDS: CARBIDOPA/LEVODOPA 25/100MG EXT REL TAB PO SCH ×4 (06:04→17:34)
--- NOTE | 2021-09-17 08:31 | Hospitalist Progress Note ---
Date of Service September 17, 2021 Assessment & Plan (1) Frequent falls: (2) Traumatic subdural hematoma: (3) Left rib fracture: (4) Parkinsons disease: (5) Atrial fibrillation: (6) Debilitated patient: Plan: Chronic gait disturbance with frequent falls at home. Seems to be asymptomatic from subdural and multiple rib fractures. Requires elevated level of care. He is agreeable to rehab placement. Reviewed Case management note from yesterday. Continue therapy. 2 Parkinson's disease. He does not follow routinely with Neurology - last seen as outpatient in 2012. At last hospitalization 07/2021, evaluated by Neurology. He is currently on Carbidopa-Levodopa. Seems to be stable. Continue same. 3. Atrial fibrillation is controlled without AV alvarez blocking agents. Not a candidate for anticoagulation due to recurrent falling. Admission and Anticipated Discharge Date Admission Date: September 10, 2021 Subjective (PCP Freddy Chaidez PA-C) Admitted 09/10/2021 with recurrent falls, small subdural hematoma, confusion. Suffered multiple left-sided rib fractures. Charted that son declined neuro surgical referral/ transfer. With conservative management he has returned to baseline. He has longstanding Parkinson's disease. He does not follow routinely with Neurology - last seen as outpatient in 2012. At last hospitalization 07/2021, evaluated by Neurology.Can consider starting pimavanserin 34mg daily for visual hallucinations (this will need to be done as an outpatient) He is currently on Carbidopa-Levodopa QID. Patient tells me that he is doing well this morning. He denies pain. Tells me he is eating well and enjoying the food. He is ambulating with a walker. He tells me that he was up to the bathroom this morning with assistance. He is agreeable to going to rehab. Review of Systems Review of Systems: Patient denies pain or shortness of breath. Denies abdominal pain. Denies any difficulty moving his bowels. Physical Exam Physical Exam: In general: Elderly. Not distressed. Pleasant. Skin: No obvious rash. Eyes: Anicteric. Respiratory: Clear to auscultation. Cardiovascular: Irregularly irregular. Lower extremities: No edema. Abdomen: Soft, good bowel sounds. No appreciable hepatosplenomegaly masses or tenderness. Neuro exam: Resting tremor. Psychiatric: Alert. Results & Data Results & Data ([facility]) Vital Signs (Past 12 Hours) Vital Signs Temp Pulse Resp BP Pulse Ox 09/17/21 07:21 97.9 F 86 16 139/72 98 09/16/21 22:49 98.2 F 79 18 119/71 95 PG Care Time/CCT Total # of Minutes Spent Total Time Spent with Patient: Total time spent is greater than 50% in coordination of care (as documented) at patient's floor/unit and/or counseling patient: Coding Diagnoses Frequent falls R29.6 Traumatic subdural hematoma S06.5X9A Left rib fracture S22.32XA Parkinsons disease G20 Atrial fibrillation I48.91 Debilitated patient R53.81
[2021-09-18] MEDS: CARBIDOPA/LEVODOPA 25/100MG EXT REL TAB PO SCH ×4 (06:18→17:42)
--- NOTE | 2021-09-18 16:18 | Hospitalist Progress Note ---
Date of Service September 18, 2021 Assessment & Plan (1) Frequent falls: Plan: Chronic gait disturbance with frequent falls at home. Seems to be asymptomatic from subdural and multiple rib fractures. Requires elevated level of care. Pending discharge to [facility] if approved. Continue PT/OT. (2) Traumatic subdural hematoma: Plan: Patient's son declined transfer for neurosurgery. Currently asymptomatic. (3) Left rib fracture: Plan: Patient denies pain today. Tylenol PRN for pain. (4) Parkinsons disease: Plan: He does not follow routinely with Neurology - last seen as outpatient in 2012. At last hospitalization 07/2021, evaluated by Neurology. Continue Carbidopa-Levodopa. (5) Atrial fibrillation: Plan: Atrial fibrillation is controlled without AV alvarez blocking agents. Not a candidate for anticoagulation due to recurrent falling. (6) Debilitated patient: Plan: As above. Continue PT/OT. Awaiting placement at [facility] if approved. (7) DVT prophylaxis: Plan: Anticoagulation contraindicated in the setting of subdural hematoma. SCDs. Admission and Anticipated Discharge Date Admission Date: September 10, 2021 Subjective Patient denies pain or other complaints this morning. He is awaiting placement at [facility]. Review of Systems Review of Systems: All systems reviewed & are unremarkable except as noted in Subjective Physical Exam Constitutional: + overweight; no acute distress Eyes: + anicteric sclerae ENMT: Ears: no hearing impairment Neck: normal visual inspection Respiratory: normal respiratory effort, lungs clear to auscultation Cardiovascular: Rate/Rhythm: regular rate and + irregularly irregular Vessels: no JVD Extremities: no edema Gastrointestinal (Abdomen): Inspection/Auscultation: normal bowel sounds Percussion/Palpation: abdomen soft; abdomen nontender Neurologic: Speech / Cognition: + abnormal speech Psychiatric: A+Ox3, euthymic affect Results & Data Results & Data ([facility]) Vital Signs (Past 12 Hours) Vital Signs Temp Pulse Resp BP Pulse Ox 09/18/21 15:38 37.1 C 96 H 16 113/63 94 09/18/21 07:35 36.8 C 98 H 16 153/66 H 98 PG Care Time/CCT Total # of Minutes Spent Total Time Spent with Patient: Total time spent is greater than 50% in coordination of care (as documented) at patient's floor/unit and/or counseling patient: Coding Level of Care Code 01396 Subseq Hosp Care Lvl 1 History Problem Focused Exam Problem Focused Diagnoses Frequent falls R29.6 Traumatic subdural hematoma S06.5X9A Left rib fracture S22.32XA Parkinsons disease G20 Atrial fibrillation I48.91 Debilitated patient R53.81 DVT prophylaxis Z29.9
[2021-09-19] MEDS: CARBIDOPA/LEVODOPA 25/100MG EXT REL TAB PO SCH ×4 (05:08→17:49)
--- NOTE | 2021-09-19 13:20 | Hospitalist Progress Note ---
Date of Service September 19, 2021 Assessment & Plan (1) Frequent falls: Plan: Chronic gait disturbance with frequent falls at home. Seems to be asymptomatic from subdural and multiple rib fractures. Patient remains clinically stable. Requires elevated level of care. Pending discharge to [facility] if approved. Continue PT/OT. (2) Traumatic subdural hematoma: Plan: Patient's son declined transfer for neurosurgery. Currently asymptomatic. (3) Left rib fracture: Plan: Patient denies pain again today. Tylenol PRN for pain. (4) Parkinsons disease: Plan: He does not follow routinely with Neurology - last seen as outpatient in 2012. At last hospitalization 07/2021, evaluated by Neurology. Continue Carbidopa-Levodopa. (5) Atrial fibrillation: Plan: Atrial fibrillation is controlled without AV alvarez blocking agents. Not a candidate for anticoagulation due to recurrent falling. (6) Debilitated patient: Plan: As above. Continue PT/OT. Awaiting placement at [facility] if approved. (7) DVT prophylaxis: Plan: Anticoagulation contraindicated in the setting of subdural hematoma. SCDs. Admission and Anticipated Discharge Date Admission Date: September 10, 2021 Subjective Patient has no new complaints today. He is awaiting placement at [facility]. Review of Systems Review of Systems: All systems reviewed & are unremarkable except as noted in Subjective Physical Exam Physical Exam: Temp Pulse Resp BP Pulse Ox 36.3 C L 81 15 137/77 98 09/19/21 07:09 09/19/21 07:09 09/19/21 07:09 09/19/21 07:09 09/19/21 07:09 Patient is afebrile. Vital signs stable. Constitutional: + overweight; no acute distress Eyes: + anicteric sclerae ENMT: Ears: no hearing impairment Neck: normal visual inspection Respiratory: normal respiratory effort, lungs clear to auscultation Cardiovascular: RRR, no murmur, no edema Gastrointestinal (Abdomen): Inspection/Auscultation: normal bowel sounds Percussion/Palpation: abdomen soft; abdomen nontender Musculoskeletal: Head/Neck/Chest: normocephalic Extremities: extremities normal to inspection and strength 5/5 throughout; full ROM of extremities Skin: no rashes, warm and dry Neurologic: PERRL, EOMI, accommodation nl, no face palsy, no dysarthria Psychiatric: A+Ox3, euthymic affect Results & Data Results & Data ([facility]) Vital Signs (Past 12 Hours) Vital Signs Temp Pulse Resp BP Pulse Ox 09/19/21 07:09 36.3 C L 81 15 137/77 98 PG Care Time/CCT Total # of Minutes Spent Total Time Spent with Patient: Total time spent is greater than 50% in coordination of care (as documented) at patient's floor/unit and/or counseling patient: Coding Level of Care Code 77095 Subseq Hosp Care Lvl 1 Diagnoses Frequent falls R29.6 Traumatic subdural hematoma S06.5X9A Left rib fracture S22.32XA Parkinsons disease G20 Atrial fibrillation I48.91 Debilitated patient R53.81 DVT prophylaxis Z29.9
[2021-09-20] MEDS: CARBIDOPA/LEVODOPA 25/100MG EXT REL TAB PO SCH ×3 (05:11→15:22)
--- NOTE | 2021-09-20 13:09 | Discharge Summary ---
Date of Service September 20, 2021 Admission HPI Per Admitting Provider The patient is an 86-year-old male with a past medical history including Parkinson's disease, dementia, Lyme disease, atrial fibrillation, visual hallucinations and frequent falls. Patient presents to the emergency department as noted above. Initial CT scan of head this evening showed a 2 mm interhemispheric subdural hematoma, with recommendation for repeat CT in [address] in 5 h showed a stable subdural hematoma along the falx. The patient's son was comfortable with him being admitted to [facility], and did not want any aggressive intervention performed on the patient. Principal Diagnosis Traumatic SDH s/p fall Discharge Exam GENERAL: 86 yo WD/WN elderly WM. NAD. LUNGS: Clear to auscultation bilaterally. No accessory muscle use. No W/R/R. CARDIOVASCULAR: Regular rate and rhythm. No M/G/R. No JVD. ABDOMEN: Soft, non-tender and non-distended. BS normoactive x 4 quad. EXTREMITIES: No edema. Non-tender. Peripheral pulses +2/4. NEUROLOGIC: A&O x3. PSYCHIATRIC: Cooperative. Appropriate mood and affect. SKIN: Warm, dry, intact. No rashes or lesions. Discharge Data Allergies Allergy/AdvReac Type Severity Reaction Status Date / Time No Known Allergies Allergy Verified 09/09/21 20:31 Consultations None Procedures Performed None Ordered Studies Chest X-Ray 09/09/21 16:32 XR chest 1V portable CLINICAL HISTORY: weakness. Evaluate cardiopulmonary status COMPARISON STUDY: 07/30/2020 TECHNIQUE: 1 view of the chest FINDINGS: Single frontal view of the chest demonstrates the cardiomediastinal silhouette to be within normal limits. The lungs are clear of alveolar opacities. Evidence for calcifications is again seen at the right lung base and superimposed over the liver. These may be pleural-based. They are unchanged. There is no evidence for pleural effusion. There is no evidence for vascular congestion. There is no acute osseous pathology. IMPRESSION: No acute cardiopulmonary disease. ACT 112: Negative or not required by law. Electronically signed by: Juan Strickland M.D. 09/09/2021 4:[address] 09/09/21 20:[address] DOSE: 537.48 mGy.cm HISTORY: confusion, fall TECHNIQUE: Multiaxial CT images of the head were performed without the use of intravenous contrast. Automated exposure control was utilized for this study. A dose lowering technique was utilized adhering to the principles of ALARA. Comparison: Head CT 08/02/2020. Findings: The paranasal sinuses and mastoid air cells are clear. The calvarium and skull base are intact. The ventricles and sulci demonstrate mild age-related involutional changes. There is no mass, midline shift, or acute infarct. Periventricular white matter hypodensity favors microvascular ischemic change. This remains unchanged. There is a trace interhemispheric subdural hematoma measuring up to 2 mm in thickness. Impression: Trace interhemispheric acute subdural hematoma measuring up to 2 mm in thickness. Follow-up head CT in 6 to 12 hours recommended to ensure stability. ACT 112: Negative or not required by law. Electronically signed by: Derrek Viramontes M.D. 09/09/2021 9:08 PM Abdomen/Pelvis CT 09/10/21 00:36 CT OF THE ABDOMEN AND PELVIS WITHOUT CONTRAST CLINICAL HISTORY: Abdominal pain following fall. COMPARISON STUDY: No previous studies for comparison. TECHNIQUE: Axial images of the abdomen and pelvis were obtained without IV contrast. Images were reviewed in the axial, sagittal, and coronal planes. Automated exposure control was utilized for the study. A dose lowering technique was utilized adhering to the principles of ALARA. FINDINGS: Please note that the chest CT will be reported separately. Multiple partially calcified confluent nodules of the subcutaneous tissues of the right lower back are described on that exam. Acute appearing minimally displaced fractures of the left eighth, ninth and 10th ribs are depicted on that exam as well. No hemoperitoneum or pneumoperitoneum is present. Evaluation of the solid abdominal viscera is suboptimal on this unenhanced exam. However, there is no evidence for traumatic injury to the liver, spleen, adrenal glands, kidneys or pancreas. Right-sided parapelvic cyst is noted. Additional low-attenuation bilateral renal lesions are suboptimally assessed on this exam but favor cysts. There are gallstones within the gallbladder. There is no evidence for a bowel obstruction. There is a moderate amount stool within the colon and rectum. No free fluid is present. There are possible tiny stones within the bladder. There is no hydronephrosis. No acute lumbar spine or pelvic fracture is identified. IMPRESSION: 1. No acute traumatic findings within the abdomen or pelvis on unenhanced exam. 2. Moderate amount stool within the colon and rectum. No bowel obstruction. 3. Cholelithiasis. ACT 112: Negative or not required by law. Electronically signed by: Medardo De Paz M.D. 09/10/2021 8:[address] 09/10/21 00:36 CT cervical spine wo con CLINICAL HISTORY: Status post fall with neck pain COMPARISON STUDY: 07/30/2020 CT DOSE: 1725.87 mGy.cm TECHNIQUE: Standard CT of the Cervical Spine was performed without IV contrast. A dose lowering technique was utilized adhering to the principles of ALARA. FINDINGS: Bones: Bones are osteopenic. Compared to the previous examination, there is again anterolisthesis of C3 on C4 by approximately 4 mm. This is unchanged. There is also reversal of the cervical lordosis, again unchanged related to degenerative change. There is a torticollis also present concave to the left. This is also unchanged. There is no evidence for acute fracture. The heights of the vertebral bodies are maintained. The vertebral bodies are in anatomic alignment. The odontoid is intact. Degenerative changes are seen at the atlantoaxial articulation. Disc spaces:Moderate disc space narrowing is again seen from C4 through T1 with endplate sclerosis and osteophyte formation. Apophyseal joints:Degenerative apophyseal disease is also again seen bilaterally, left greater than right. Soft tissues:The prevertebral soft tissues are within normal limits. IMPRESSION: Osteopenia with no acute abnormality. There is extensive degenerative disc and degenerative joint disease with reversal of the expected cervical lordosis and torticollis again seen. ACT 112: Negative or not required by law. Electronically signed by: Juan Strickland M.D. 09/10/2021 7:[address] 09/10/21 00:36 CT OF THE CHEST WITHOUT IV CONTRAST CLINICAL HISTORY: Chest pain following fall. COMPARISON STUDY: Chest radiographs July 30, 2020 and September 09, 2021. TECHNIQUE: Axial images of the chest were obtained without IV contrast. Images were reviewed in the axial, sagittal, and coronal planes. IV contrast was not administered for this examination. Automated exposure control was utilized for the study. A dose lowering technique was utilized adhering to the principles of ALARA. FINDINGS: Thoracic aorta is suboptimally assessed on this unenhanced exam but there is no mediastinal hematoma. Cardiomegaly is noted. There is no pericardial effusion. No enlarged thoracic lymph nodes are noted. No pneumothorax or pleural effusion is noted. Several right lung nodules measure up to 5 mm. The largest nodules along the right minor fissure. This is probably benign. No pulmonary contusion is present. Subpleural opacities favor atelectasis. There is mild upper lobe predominant emphysema. Note is made of an acute minimally displaced fracture of the posterior left ninth and 10th ribs as well as the lateral left eighth rib. Multiple additional old bilateral rib fractures are present. There is no thoracic lymphadenopathy. Note is made of multiple confluent partially calcified nodules within the subcutaneous tissues of the right back. These extend for 11 cm in the craniocaudal dimension. Abdomen and pelvis will be reported separately. IMPRESSION: 1. Acute minimally displaced fractures of the left eighth, ninth and 10th ribs. No pneumothorax. This finding will be called/faxed to the floor at time of dictation. 2. Multiple confluent partially calcified subcutaneous masses/nodules of the right lower back, as described above. These are pathologically indeterminate although a benign etiology is favored. Clinical follow up to ensure stability is recommended. A chest CT could also be obtained in 6 months. ACT 112: Negative or not required by law. Electronically signed by: Medardo De Paz M.D. 09/10/2021 7:[address] 09/10/21 00:36 CT head/brain wo con CLINICAL HISTORY: confusion, parkinsons, reeval possible subdural hematoma COMPARISON STUDY: 09/09/2021 at 8:52 PM and 08/02/2020 CT DOSE: TECHNIQUE: Standard CT of the Brain was performed without IV contrast. A dose lowering technique was utilized adhering to the principles of ALARA. FINDINGS: Extraaxial space: Compared to the previous study and more remote study, there is again evidence for a very small subdural hematoma along the interhemispheric fissure/falx. It again measures approximately 2 mm and is unchanged. There are no extra-axial fluid collections. Ventricles and cisterns: The ventricles are mildly dilated bilaterally. There is no evidence for midline shift or mass effect. Parenchyma: There is no subarachnoid or intraparenchymal hemorrhage. There is no evidence for an acute infarct or cerebral edema. There is mild cerebral cortical atrophy and decreased attenuation in the periventricular white matter representing remote small vessel disease. There are no gross mass lesions. Osseous structures: There is no evidence for an acute fracture. The visualized paranasal sinuses are clear. The mastoid air cells are clear bilaterally. Soft tissues: There is no evidence for focal soft tissue swelling. IMPRESSION: Compared to the previous examination, there is essentially no change in previously identified very small subdural hematoma along the interhemispheric fissure/falx. No new hemorrhage is identified. There is again cerebral cortical atrophy and remote small vessel disease. ACT 112: Negative or not required by law. Electronically signed by: Juan Strickland M.D. 09/10/2021 7:26 AM Hospital Course (1) Frequent falls: Chronic gait disturbance with frequent falls at home. Seems to be asymptomatic from subdural and multiple rib fractures. Patient remains clinically stable. Requires elevated level of care. Continue therapy. Authorization received today to send to [facility] for acute inpatient rehab. (2) Traumatic subdural hematoma: Patient's son declined transfer for neurosurgery. Has remained asymptomatic. (3) Left rib fracture: Patient denies pain again today. Tylenol PRN for pain. (4) Parkinsons disease: He does not follow routinely with Neurology - last seen as outpatient in 2012. At last hospitalization 07/2021, evaluated by Neurology. Continue Carbidopa-Levodopa. Will arrange for outpatient f/u with neurology after discharge. (5) Atrial fibrillation: Atrial fibrillation is controlled without AV alvarez blocking agents. Not a candidate for anticoagulation due to recurrent falling. (6) Debilitated patient: Working with therapy, therapy recommending rehab. Authorization received 09/20/21, will d/c to [facility] rehab. Medically and hemodynamically stable for discharge to [facility] today. Advise f/u with PCP upon d/c from [facility]. Total Time Total Time Spent Total Time Spent (In Minutes): >30 minutes Discharge Plan Discharge Items Patient Disposition: Transfer Inpatient Rehab Fac Reason For Visit: SUBDURAL HEMATOMA, S/P FALL Discharge Diagnosis: Subdural hematoma after a fall Activity: As commented below Activity Comment: As tolerated with assistance Non-emergency contact: Primary Care Provider and Neurologist Call non-emergency contact if: you have any medication questions Follow-up/Referrals: Freddy Chaidez PA-C [Primary Care Provider] - Diet: Regular Addtl Attending Provider Instructions: You were hospitalized with bleeding on your brain which occurred due to your fall Do not take any medications such as Ibuprofen/Advil/Aleve/Motrin/Aspirin which could thin your blood You will be going to [facility] which is an inpatient rehabilitation hospital, [facility] they will work on your strength and coordination Home health will be arranged to continue therapy as an outpatient once your deemed safe to return home Recommend outpatient follow up with neurologist due to your parkinson's disease -- may need some adjustment in medication regimen You will be followed by a team of doctors at the rehab facility, but once discharged, you will need to follow up with your family healthcare provider Pending Studies at Discharge: No Stand-Alone Forms: My [facility] [employer] Skilled Items Patient informed of condition?: Yes DNR: Yes Discharge Level of Care: Acute rehab Communicable Disease: No Discharge Prognosis: Stable Lines: None Urinary Catheter: No Medications and DC Order Prescriptions: Continued carbidopa-levodopa 25-100 mg tablet extended release See Rx Instructions .ROUTE .COMPLEX RF: 0 Discontinued doxycycline hyclate 100 mg capsule 100 mg PO BID RF: 0 Discharge Orders: Discharge Order (Routine); Ordered 09/20/21 Ordered By: Isabel Acevedo Admission Data Admit Date/Time: 09/10/21 03:47 Attending Provider: Peewee Montanez Admit Provider: Ryan Cash Primary Care Provider: Freddy Chaidez Other Providers: Ryan Cash ; [facility] Coding Level of Care Code D/C DAY MANAGEMENT >30 MINS Diagnoses Frequent falls R29.6 Traumatic subdural hematoma S06.5X9A Left rib fracture S22.32XA Parkinsons disease G20 Atrial fibrillation I48.91 Debilitated patient R53.81
[2021-09-20 16:08] VITALS: PULSE 96; TEMP 98.2; O2SAT 96
[2021-09-20 17:03] VITALS: BP 137/77
== END 2021-09-20 18:02 | DRG 83 ==
LOC: ED 15:26 → 2S 09-10 03:47 → SUATTDRO 09-10 03:47 → 2S 09-10 05:15 → 3W 09-11 00:52